=== PATIENT | male | born 1950 | race Caucasian/White ===

== ENCOUNTER 2020-11-30 07:14 | Day surgery (SDC) | payer MEDICARE ==
[2020-11-29 11:21] LABS: BASOPHILS % (AUTO) 0.4 % (0-1); EOSINOPHILS # (AUTO) 0.1 X10'3 (0-0.9); EOSINOPHILS % (AUTO) 1.4 % (0-6); HEMOGLOBIN 14.4 g/dl (14.0-17.9); LYMPHOCYTES # (AUTO) 1.9 X10'3 (1.1-4.8); LYMPHOCYTES % (AUTO) 32.7 % (21-51); MEAN CORPUSCULAR HEMOGLOBIN 28.1 PG (27.0-31.0); MEAN CORPUSCULAR HGB CONC 32.8 g/dL (33.0-36.5); MEAN CORPUSCULAR VOLUME 85.5 FL (78-98); MEAN PLATELET VOLUME 6.7 FL (7.4-10.4); MONOCYTES # (AUTO) 0.8 X10'3 (0-0.9); MONOCYTES % (AUTO) 13.9 % (2-12); NEUTROPHILS # (AUTO) 3.1 X10'3 (1.8-7.7); NEUTROPHILS % (AUTO) 51.6 % (42-75); PLATELET COUNT 263 X10'3 (140-440); RED BLOOD COUNT 5.15 X10'6 (4.70-6.10); RED CELL DISTRIBUTION WIDTH 14.4 % (11.5-14.5); WHITE BLOOD COUNT 5.9 X10'3 (4.5-11.0)
[2020-11-29 11:31] LABS: ALBUMIN 3.8 G/DL (3.4-5.0); ANION GAP 9 (8-16); BLOOD UREA NITROGEN 19 MG/DL (7-18); BUN/CREATININE RATIO 15.8 (5.4-32.0); CALCIUM 8.7 MG/DL (8.5-10.1); CHLORIDE 106 MMOL/L (99-107); GLUCOSE 99 MG/DL (70-104); POTASSIUM 4.6 MMOL/L (3.5-5.1); SODIUM 143 MMOL/L (135-145); TOTAL CARBON DIOXIDE 27.9 MMOL/L (24-32); eGFR 60 ML/MIN
[2020-11-29 11:34] LABS: PARTIAL THROMBOPLASTIN TIME 28 SECONDS (22-32)
[2020-11-30] VITALS (15 sets, daily range): BP systolic 109–140; BP diastolic 50–76
[~2020-11-30] VITALS: Ht 175.3 cm; Wt 86.6 kg
[~2020-11-30 07:14] MED LIST: ATOR10TA87 PO; CLOP75TA34 PO; HYDR-4353 PO; OMEG1CAP13 PO
[2020-11-30] MEDS ORDERED: normal saline 1,000 ML IV SCH ×2 (07:50→11:45)
[2020-11-30] MEDS ORDERED: LIDOcaine/PRILOcaine 5gm cream TP ONE (07:50)
[2020-11-30] MEDS ORDERED: LORazepam 0.5 MG tablet PO PRN (07:50)
[2020-11-30] MEDS ORDERED: diphenhydrAMINE 25mg capsule PO PRN (07:50)
[2020-11-30] MEDS ORDERED: LISI2.5T14 PO (08:09)
[2020-11-30] MEDS ORDERED: ATOR40TA72 PO (08:09)
[2020-11-30] MEDS ORDERED: ASPI-1265 PO (08:10)
[2020-11-30] MEDS ORDERED: nitroGLYCERIN-Tridil 50MG/D5W 250 ML IV ONE (09:29)
[2020-11-30] MEDS ORDERED: verapamil 2.5 mg/ml inj IV ONE (09:29)
[2020-11-30] MEDS ORDERED: fentaNYL/PF 50MCG/1 ML 2ML syringe ONE (09:29)
[2020-11-30] MEDS ORDERED: iohexol 350MG/ML 100ml bottle IV ONE ×2 (09:29→10:22)
[2020-11-30] MEDS ORDERED: LIDOcaine 1% (10mg/ml)w/preservative injection 20ml MDV ONE (09:29)
[2020-11-30] MEDS ORDERED: heparin 1,000unit/ml 10ml vial 10 ML ONE (09:29)
[2020-11-30] MEDS ORDERED: midazolam 1 mg/ML 2ml injection ONE (09:29)
[2020-11-30] MEDS ORDERED: iohexol 350 MG/ML 50ML vial IV ONE (09:29)
[2020-11-30] MEDS ORDERED: heparin 25,000 UNIT/250ml bag 250 ML IV ONE (10:22)
[2020-11-30] MEDS ORDERED: clopidogrel 300mg tablet ONE (10:59)
[2020-11-30] MEDS ORDERED: MESSAGE TO NURSING IV ONE (12:15)
[2020-11-30] MEDS ORDERED: HYDROcodone/acetaminophen 10/325mg tab PO PRN (13:40)
[2020-11-30] MEDS ORDERED: ondansetron/PF 4mg/2ml inj ONE (14:17)
== END 2020-11-30 17:50 | disposition home or self-care (01) ==
LOC: SSTAY O 07:14
PROVIDERS: ATTEND Internal Medicine Cardiovascular Disease
DX: R94.39 Abnormal result of other cardiovascular function study (principal); I25.10 Atherosclerotic heart disease of native coronary artery without angina pectoris; E78.49 Other hyperlipidemia; M13.88 Other specified arthritis, other site; I10 Essential (primary) hypertension; F17.210 Nicotine dependence, cigarettes, uncomplicated; Z86.19 Personal history of other infectious and parasitic diseases; Z95.5 Presence of coronary angioplasty implant and graft; Z79.82 Long term (current) use of aspirin; Z79.01 Long term (current) use of anticoagulants; Z88.8 Allergy status to other drugs, medicaments and biological substances; Z88.5 Allergy status to narcotic agent; Z79.899 Other long term (current) drug therapy
CPT/HCPCS: 36415; 76937; 80048; 85025; 85347; 85610; 85730; 93005; 93458; 99152; 99153; C1725; C1751; C1769; C1874; C1894; C9600; J1644; J2001; J2250; J2405; J3010; J7030; Q0163; Q9967; A4620; A5120; A6258; J3490

== ENCOUNTER 2021-06-30 09:57 | Day surgery (SDC) | payer MEDICARE ==
[2021-06-29 12:27] LABS: BASOPHILS % (AUTO) 0.8 % (0-1); EOSINOPHILS % (AUTO) 0.8 % (0-6); HEMOGLOBIN 14.3 g/dl (14.0-17.9); LYMPHOCYTES # (AUTO) 1.7 X10'3 (1.1-4.8); MEAN CORPUSCULAR HEMOGLOBIN 27.4 PG (27.0-31.0); MEAN CORPUSCULAR HGB CONC 33.2 g/dL (33.0-36.5); MEAN CORPUSCULAR VOLUME 82.5 FL (78-98); MEAN PLATELET VOLUME 6.7 FL (7.4-10.4); MONOCYTES # (AUTO) 0.7 X10'3 (0-0.9); MONOCYTES % (AUTO) 12.3 % (2-12); NEUTROPHILS # (AUTO) 3.4 X10'3 (1.8-7.7); NEUTROPHILS % (AUTO) 57.1 % (42-75); PLATELET COUNT 280 X10'3 (140-440); RED BLOOD COUNT 5.21 X10'6 (4.70-6.10); RED CELL DISTRIBUTION WIDTH 14.4 % (11.5-14.5); WHITE BLOOD COUNT 5.9 X10'3 (4.5-11.0)
[2021-06-29 12:34] LABS: ALBUMIN 3.9 G/DL (3.4-5.0); ANION GAP 8 (8-16); BLOOD UREA NITROGEN 17 MG/DL (7-18); BUN/CREATININE RATIO 14.9 (5.4-32.0); CHLORIDE 102 MMOL/L (99-107); CREATININE 1.14 MG/DL (0.60-1.10); GLUCOSE 109 MG/DL (70-104); POTASSIUM 4.3 MMOL/L (3.5-5.1); SODIUM 138 MMOL/L (135-145); TOTAL CARBON DIOXIDE 28.2 MMOL/L (24-32); eGFR 64 ML/MIN
[2021-06-29 12:37] LABS: APTT 27 SECONDS (22-32)
[~2021-06-30] VITALS: Ht 177.8 cm; Wt 87.9 kg
[2021-06-30] VITALS (9 sets, daily range): BP systolic 132–162; BP diastolic 66–83
[~2021-06-30 09:57] MED LIST changes: +ASPI-1265 PO; -ATOR10TA87 PO; +ATOR40TA72 PO; -CLOP75TA34 PO; +LISI2.5T14 PO
[2021-06-30] MEDS ORDERED: diphenhydrAMINE 25mg capsule PO PRN (10:10)
[2021-06-30] MEDS ORDERED: normal saline 1,000 ML IV SCH (10:10)
[2021-06-30] MEDS ORDERED: LORazepam 0.5 MG tablet PO PRN (10:10)
[2021-06-30] MEDS ORDERED: CLOP75TA15 PO (10:18)
[2021-06-30] MEDS ORDERED: nitroGLYCERIN-Tridil 50MG/D5W 250 ML IV ONE (13:19)
[2021-06-30] MEDS ORDERED: verapamil 2.5 mg/ml inj IV ONE (13:19)
[2021-06-30] MEDS ORDERED: fentaNYL/PF 50MCG/1 ML 2ML syringe ONE (13:19)
[2021-06-30] MEDS ORDERED: iohexol 350MG/ML 100ml bottle IV ONE ×2 (13:20→15:05)
[2021-06-30] MEDS ORDERED: LIDOCAINE 1% w/preservative (10 MG/ML) inj. 10mL VIAL ONE (13:20)
[2021-06-30] MEDS ORDERED: midazolam 1 mg/ML 2ml injection ONE (13:20)
[2021-06-30] MEDS ORDERED: iohexol 350 MG/ML 50ML vial IV ONE (13:20)
[2021-06-30] MEDS ORDERED: heparin 1,000unit/ml 10ml vial 10 ML ONE ×2 (13:20→14:42)
[2021-06-30] MEDS ORDERED: heparin 25,000 UNIT/250ml bag 250 ML IV ONE (13:28)
[2021-06-30] MEDS ORDERED: heparin 1,000 UNITS/NS 500ml 500 ML ONE (15:13)
[2021-06-30] MEDS ORDERED: clopidogrel 300mg tablet ONE ×2 (15:30→15:37)
[2021-06-30] MEDS ORDERED: HYDROcodone/acetaminophen 10/325mg tab PO PRN (16:10)
[2021-06-30] MEDS ORDERED: HYDROcodone/acetaminophen 5mg/325mg tablet PO PRN (16:10)
--- NOTE | 2021-06-30 17:43 | NUR ---
Called Dr. Wagoner to clarify new prescription for Crestor as patient is already on Lipitor. He said to d/c lipitor and start new prescription for Crestor.
[2021-06-30] MEDS ORDERED: ACETYLCYSTEINE 200 MG/1 ML 4 ML ORAL SOLUTION PO SCH (20:00)
== END 2021-06-30 20:05 | disposition home or self-care (01) ==
LOC: SSTAY O 09:57
PROVIDERS: ATTEND Internal Medicine Cardiovascular Disease
DX: R94.39 Abnormal result of other cardiovascular function study (principal); I25.10 Atherosclerotic heart disease of native coronary artery without angina pectoris; I10 Essential (primary) hypertension; E78.5 Hyperlipidemia, unspecified; M13.88 Other specified arthritis, other site; Z79.01 Long term (current) use of anticoagulants; Z95.5 Presence of coronary angioplasty implant and graft; Z79.899 Other long term (current) drug therapy; Z79.82 Long term (current) use of aspirin; Z86.19 Personal history of other infectious and parasitic diseases
CPT/HCPCS: 36415; 76937; 80048; 85025; 85347; 85610; 85730; 92920; 93005; 93458; 99152; 99153; C1725; C1751; C1769; C1874; C1894; C9600; J1644; J2250; J3010; J3490; J7030; Q0163; Q9967; A4620; A5120; A6258

== ENCOUNTER 2024-08-11 00:19 | Emergency (ER) | payer MEDICARE ==
[~2024-08-11] VITALS: Ht 177.8 cm; Wt 86.4 kg
[~2024-08-11 00:19] MED LIST changes: +CLOP75TA15 PO; +OMEG-45 PO; -OMEG1CAP13 PO
--- NOTE | 2024-08-11 00:28 | ELECTROCARDIOGRAPH REPORT ---
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
--- NOTE | 2024-08-11 00:31 | Physician Documentation ---
History of Present Illness ~ Chief Complaint: Chest Pain Stated Complaint: CHEST PAIN Time Seen by MD: 00:30 HPI 73-year-old male, history of multiple stents, otherwise generally healthy, presenting with chest pain. He tells me that his symptoms started at around 2:00 p.m., about 10 hours ago. He reports having pain in his chest, which is around his central chest, feels tight, and also radiates around to the left side in his back. It is worse when he takes a deep breath, worse with certain positions. It is much worse when he lays flat. He tried multiple treatments at home without relief. He tried ibuprofen, [place], 2 nitroglycerin, and did take 325 aspirin. He finally came to the hospital because he was having a hard time sleeping. 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 He does lift weights. He does report feeling hot and sweaty today. No abdominal pain, nausea, vomiting. Later he does tell me that he had a throat infection about a week or so ago with white spots in his throat. This has resolved. Medication Reconciliation Allergies: Coded Allergies: No Known Allergies (Unverified , 08/11/24) Scheduled Aspirin (Aspirin), 1 TAB PO DAILY, (Reported) Atorvastatin Calcium (Atorvastatin Calcium), 1 TAB PO DAILY, (Reported) Clopidogrel Bisulfate (Plavix), 75 MG PO DAILY, (Reported) Colchicine (Colchicine), 1 CAP PO Q12H Hydrocodone Bit/Acetaminophen ([place] 10-325 Tablet), 1 TAB PO Q6H, (Reported) [place]-3 Fatty Acids/Fish Oil (Fish Oil 1,000 mg Softgel), 1 CAP PO DAILY, (Reported) Scheduled PRN Lisinopril (Lisinopril), 1 TAB PO PRN PRN for high blood pressure, (Reported) Past Medical History Past Medical History: Angina, Coronary Artery Disease Review of Systems Constitutional: Denies: fever Respiratory: Reports: pain with breathing Cardiovascular: Reports: chest pain Physical Exam Vital Signs: Heart Rate: 97, Respiratory Rate: 13, BP: 155/84, Pulse Oximetry: 97, Weight: 86.360 Physical Exam General: This is a pleasant and overall healthy-appearing older man, at bedside HEENT: Atraumatic, oropharynx is moist Heart: Mild tachycardic, appears regular, no audible murmur normal-appearing peripheral perfusion. No audible murmur or friction rub Lungs: Clear breath sounds bilateral, normal work of breathing and speaks in full sentences, normal oxygen saturation on room air. He does have some splinting with deep inspiration Abdomen: Soft, nondistended, nontender all quadrants including in the epigastric region Extremities: Warm and well-perfused, no edema or posterior calf or thigh ten derness Neuro: Alert and oriented, no focal deficits Psychiatric: Calm and cooperative with exam Progress Results/Orders Results/Orders Orders - FEDE NICHOLS MD Chest,Single View (08/11/24 00:24) Monitor (08/11/24 00:24) Saline Lock (08/11/24 00:24) Oxygen (08/11/24 00:24) Hs Troponin I W Calculations (08/11/24 03:24) Cta Chest Pe (08/11/24 01:45) C-Reactive Protein (08/11/24 03:58) Completed Orders - FEDE NICHOLS MD Chest,Single View (08/11/24 00:24) Cbc/Diff (08/11/24 00:24) PBNP (08/11/24 00:24) Electrocardiogram (08/11/24 00:24) CMP (08/11/24 00:24) Hs Troponin I W Calculations (08/11/24 00:24) Hs Troponin I W Calculations (08/11/24 02:24) Ketorolac Trometh 15mg/Ml Vial (Toradol (08/11/24 00:45) Stat Ekg (08/11/24 ) Man Diff (08/11/24 00:50) Cta Chest Pe (08/11/24 01:45) Iohexol 350mg/Ml 100ml (Omnipaque 350mg/ (08/11/24 01:43) Colchicine Tablet (Colchicine Tablet) (08/11/24 04:05) Medications Received in ER Medications (Trade) Dose Ordered Sig/[place] Route PRN Reason Start Time Stop Time Status Last Admin Dose Admin (Toradol injection) 15 mg ONCE ONCE IV 08/11/24 00:45 08/11/24 00:46 DC 08/11/24 01:13 15 MG Vital Signs 08/11/24 08/11/24 08/11/24/27/25 00:26 01:13 02:06 02:24 Pulse 97 81 Resp 13 15 15 17 B/P (MAP) 155/84 140/62 (88) Pulse Ox 97 96 O2 Flow Rate 0 08/11/24 02:25 Resp 16 Laboratory Tests Test 08/11/24 00:50 08/11/24 03:28 White Blood Count 9.2 Red Blood Count 4.80 Hemoglobin 13.8 L Hematocrit 40.5 L Mean Corpuscular Volume 84.3 Mean Corpuscular Hemoglobin 28.7 Mean Corpuscular Hemoglobin Concent 34.0 Red Cell Distribution Width 14.5 Platelet Count 267 Mean Platelet Volume 6.7 L Neutrophils (%) (Auto) 68.3 Lymphocytes (%) (Auto) 14.4 L Monocytes (%) (Auto) 15.8 H Eosinophils (%) (Auto) 1.3 Basophils (%) (Auto) 0.2 Neutrophils # (Auto) 6.3 Lymphocytes # (Auto) 1.3 Monocytes # (Auto) 1.5 H Eosinophils # (Auto) 0.1 Basophils # (Auto) 0.0 CBC Comment Differential Total Cells Counted 100 Neutrophils % (Manual) 72.0 Lymphocytes % (Manual) 13.0 L Monocytes % (Manual) 15.0 H Platelet Estimate Normal Red Blood Cell Morphology Normal Basophilic Stippling Sodium Level 139 Potassium Level 4.0 Chloride Level 103 Carbon Dioxide Level 29.1 Anion Gap 7 L Blood Urea Nitrogen 28 H Creatinine 1.44 H Estimated GFR/1.73 m2 48 BUN/Creatinine Ratio 19.4 Glucose Level 123 H Calcium Level 9.7 Total Bilirubin 0.5 Aspartate Amino Transf (AST/SGOT) 20 Alanine Aminotransferase (ALT/SGPT) 17 Alkaline Phosphatase 55 Troponin I High Sensitivity 13 11 Pro-B-Type Natriuretic Peptide 147 H Total Protein 7.2 Albumin 3.8 Globulin 3.4 Albumin/Globulin Ratio 1.1 Chemistry Comments Troponin I High Sens Percent Delta 15 Troponin I Hi Sens Absolute Change -2 EKG/XRAY/CT/US/VASC/MRI EKG : Additional Comment I personally interpreted the EKG and this shows: Sinus tachycardic, rate 102, QTC 446, the patient has some variability to the EKG with a poor baseline, possible ST elevation in the inferior leads CT : Impression I personally reviewed the CT scan, and this shows no evidence of pulmonary embolus, no aortic dissection, but there is a pericardial effusion Heart Score: Heart Score Response (Comments) Value History Moderate Suspicious [address]-Deviation 2 Age >65 2 Risk Factors 1 or 2 risk factors 1 Troponin Normal limit 0 Total 6 Medical Decision Making Heart Score: 6 Differential Dx:Considerations: Include: angina, aortic dissection, chest wall pain, CHF, costochondritis, myocardial infarction, pericarditis, pleuritis, pneumothorax, pulmonary embolus Assessment 73-year-old male presenting with chest pain. His symptoms have been ongoing for about 10 or 11 hours by time of my evaluation. His EKG does show diffuse ST elevation, without reciprocal changes, concerning for possible ischemic changes or pericarditis. However, his clinical history appears more consistent with pericarditis. His troponin then returns normal, making STEMI or ACS unlikely. Labs were otherwise unremarkable. Chest x-ray unremarkable. Given the unclear cause of his symptoms, a CT scan of the chest was then obtained, which shows no PE, aortic dissection, but does show a pericardial effusion. This seems consistent with pericarditis. He has no findings of congestive heart failure or tamponade at this time. Given his overall well appearance, it seems reasonable for him to be discharged on ibuprofen and colchicine. 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 Return precautions were given if he does develop any worsening symptoms including shortness of breath, worsening chest pain, signs of congestive heart failure, or tamponade. Departure Time of Disposition: 04:01 Disposition: 01 HOME / SELF CARE / HOMELESS Impression: Primary Impression: Pericarditis Additional Impression: Pericardial effusion Condition: Improved Discharge Instructions: Pericardial Effusion, Pericarditis Referrals: NO PRIMARY CARE PROVIDER (PCP) Prescriptions Colchicine (Colchicine) 0.6 Mg Capsule 1 CAP PO Q12H for 90 Days, #60 CAP 0 Refills Prov: FEDE NICHOLS MD 08/11/24 Education Educated: Patient, Family Educated regarding: diagnosis, treatment, need for follow up Signature Scribe Signature: kathy Attestation: FEDE Parra MD August 11, 2024 00:31
[2024-08-11 00:54] LABS: BASOPHILS % (AUTO) 0.2 % (0-1); EOSINOPHILS # (AUTO) 0.1 X10'3 (0-0.9); EOSINOPHILS % (AUTO) 1.3 % (0-6); HEMATOCRIT 40.5 % (42.0-52.0); HEMOGLOBIN 13.8 g/dl (14.0-17.9); LYMPHOCYTES # (AUTO) 1.3 X10'3 (1.1-4.8); LYMPHOCYTES % (AUTO) 14.4 % (21-51); MEAN CORPUSCULAR HEMOGLOBIN 28.7 PG (27.0-31.0); MEAN CORPUSCULAR VOLUME 84.3 FL (78-98); MEAN PLATELET VOLUME 6.7 FL (7.4-10.4); MONOCYTES # (AUTO) 1.5 X10'3 (0-0.9); MONOCYTES % (AUTO) 15.8 % (2-12); NEUTROPHILS # (AUTO) 6.3 X10'3 (1.8-7.7); NEUTROPHILS % (AUTO) 68.3 % (42-75); PLATELET COUNT 267 X10'3 (140-440); RED CELL DISTRIBUTION WIDTH 14.5 % (11.5-14.5); WHITE BLOOD COUNT 9.2 X10'3 (4.5-11.0)
--- NOTE | 2024-08-11 00:56 | ELECTROCARDIOGRAPH REPORT ---
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
--- NOTE | 2024-08-11 01:06 | RADIOLOGY REPORT ---
CHEST RADIOGRAPH Indication: CP Technique: Single frontal view of the chest was obtained COMPARISON: None FINDINGS: Lines and Tubes: None Lungs: Clear. Pleura: No effusion. No pneumothorax. Cardiomediastinal contours: Unremarkable IMPRESSION: No abnormality demonstrated.
[2024-08-11 01:10] LABS: ALANINE AMINOTRANSFERASE 17 U/L (12-78); ALBUMIN 3.8 G/DL (3.4-5.0); ALBUMIN/GLOBULIN RATIO 1.1 (1.1-1.5); ALKALINE PHOSPHATASE 55 IU/L (46-116); ANION GAP 7 (8-16); ASPARTATE AMINO TRANSFERASE 20 U/L (10-37); BILIRUBIN,TOTAL 0.5 MG/DL (0.1-1.0); BLOOD UREA NITROGEN 28 MG/DL (7-18); BUN/CREATININE RATIO 19.4 (10.0-20.0); CALCIUM 9.7 MG/DL (8.5-10.1); CHLORIDE 103 MMOL/L (99-107); CREATININE 1.44 MG/DL (0.60-1.10); GLUCOSE 123 MG/DL (70-104); SODIUM 139 MMOL/L (135-145); TOTAL CARBON DIOXIDE 29.1 MMOL/L (24-32); TOTAL CELLS COUNTED 100; TOTAL PROTEIN 7.2 G/DL (6.4-8.2); eCRCL 49 ML/MIN; eGFR 48 ML/MIN
[2024-08-11 01:11] LABS: PLATELET ESTIMATE NORMAL
[2024-08-11] MEDS: ketorolac trometh 15mg/ml vial 15 MG/ML ML IV ONE (01:13)
[2024-08-11 01:17] LABS: PRO BRAIN NATRIURETIC PEPTIDE 147 PG/ML (0-125)
[2024-08-11] MEDS ORDERED: iohexol 350MG/ML 100ml bottle IV ONE (01:43)
[2024-08-11 02:24] VITALS: PULSE 81
--- NOTE | 2024-08-11 03:40 | RADIOLOGY REPORT ---
Clinical History Pleuritic chest pain, radiates through to the back Comparison None Technique: contrast-enhanced CT volume data acquisition of the chest performed for CT angiography and presented in axial, coronal and sagittal planes including MIP series. All CT scans at this medical facility are performed using dose modulation techniques as appropriate t o a performed exam including the following: Automated exposure control was utilized; adjustment of th e mA and/or kV according to patient size; and use of iterative reconstruction technique. All CT studies are reported to the Dose Index Registry of the [employer]. Contrast: JENNA 350 100ML Radiation Dose: CTDI (mGy): 19.64; DLP (mGy-cm): 775.61 PETE RAH, [id number] FINDINGS: No precontrast imaging was performed. There is no evidence of pulmonary embolism, aortic aneurysm or aortic dissection on this study. Great vessels off the aortic arch are unremarkable on this study. Heart size is normal. There is a moderate volume of pericardial effusion measuring up to 19 mm thick anteriorly, source und etermined. There is no pneumonia or pulmonary vascular congestion, no pneumothorax or pneumomediastinum, no pleu ral effusion. Airways are patent, no mediastinal mass or pathologic adenopathy. Osseous structures do not suggest acute pathology. T3 vertebral body has moderate chronic-appearing wedge-shaped deformity with no spinal canal compromi se. Chest wall and limited evaluation of the lower neck reveal no other significant abnormality. Limited evaluation of upper abdomen is unremarkable. IMPRESSION: 1. No evidence of pulmonary embolism, aortic aneurysm or aortic dissection on this study. 2. Moderate volume of pericardial effusion up to 19 mm thick anteriorly, source undetermined. Infec tious and inflammatory etiologies could be considered. There is no evidence of contrast extravasatio n/active hemorrhage identified on this examination. Heart size is normal. This report was electronically signed by Pedro Meraz MD on 08/11/2024 3:37:42 AM. The above findings were reported to Dr. Mora. The call was initiated at 08/11/2024 3:37:54 AM.
[2024-08-11] MEDS ORDERED: COLC0.6C3 PO (04:03)
[2024-08-11] MEDS ORDERED: colchicine 0.6mg tablet PO ONE (04:05)
[2024-08-11 04:54] VITALS: BP 166/82; RESP 16; O2SAT 96
== END 2024-08-11 04:56 | disposition home or self-care (01) ==
LOC: ER 00:20
DX: I31.39 Other pericardial effusion (noninflammatory) (principal); I25.10 Atherosclerotic heart disease of native coronary artery without angina pectoris; Z79.82 Long term (current) use of aspirin
CPT/HCPCS: 36415; 71045; 71275; 80053; 83880; 84484; 85025; 93005; 96374; 99285; J1885; Q9967; 85007

== ENCOUNTER 2024-08-18 16:36 | Inpatient (IN) | payer MEDICARE ==
[~2024-08-18] VITALS: Ht 175.3 cm; Wt 66.5 kg
[~2024-08-18 16:36] MED LIST changes: +COLC0.6C3 PO
[2024-08-18 17:00] LABS: BASOPHILS # (AUTO) 0.1 X10'3 (0-0.2); BASOPHILS % (AUTO) 0.8 % (0-1); EOSINOPHILS # (AUTO) 0.1 X10'3 (0-0.9); EOSINOPHILS % (AUTO) 1.6 % (0-6); HEMATOCRIT 35.6 % (42.0-52.0); HEMOGLOBIN 11.8 g/dl (14.0-17.9); LYMPHOCYTES # (AUTO) 1.7 X10'3 (1.1-4.8); LYMPHOCYTES % (AUTO) 21.1 % (21-51); MEAN CORPUSCULAR HEMOGLOBIN 28.4 PG (27.0-31.0); MEAN CORPUSCULAR HGB CONC 33.3 g/dL (33.0-36.5); MEAN CORPUSCULAR VOLUME 85.5 FL (78-98); MEAN PLATELET VOLUME 6.7 FL (7.4-10.4); MONOCYTES # (AUTO) 1.1 X10'3 (0-0.9); MONOCYTES % (AUTO) 14.1 % (2-12); NEUTROPHILS % (AUTO) 62.4 % (42-75); PLATELET COUNT 389 X10'3 (140-440); RED BLOOD COUNT 4.16 X10'6 (4.70-6.10); RED CELL DISTRIBUTION WIDTH 14.2 % (11.5-14.5)
--- NOTE | 2024-08-18 17:03 | ELECTROCARDIOGRAPH REPORT ---
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 Marco Lara Measurements Intervals [place] Rate: 91 P: 88 [place]: 135 QRS: 36 QRSD: 89 T: 125 QT: 367 QTc: 452 Interpretive Statements Sinus rhythm Abnormal R-wave progression, early transition Inferior infarct, acute (RCA) Lateral leads are also involved Probable RV involvement, suggest recording right precordial leads Electronically Signed On 08-20-2024 6:35:[address] Marco Lara Please click the below link to view image of tracing.
[2024-08-18 17:22] LABS: APTT 28 SECONDS (22-32); PROTHROMBIN TIME 10.7 SECONDS (9.0-12.0)
[2024-08-18 17:33] LABS: ALBUMIN 3.2 G/DL (3.4-5.0); ANION GAP 8 (8-16); BLOOD UREA NITROGEN 22 MG/DL (7-18); BUN/CREATININE RATIO 14.2 (10.0-20.0); CALCIUM 8.8 MG/DL (8.5-10.1); CHLORIDE 104 MMOL/L (99-107); CREATININE 1.55 MG/DL (0.60-1.10); GLUCOSE 106 MG/DL (70-104); POTASSIUM 4.6 MMOL/L (3.5-5.1); PRO BRAIN NATRIURETIC PEPTIDE 118 PG/ML (0-125); SODIUM 140 MMOL/L (135-145); TOTAL CARBON DIOXIDE 28.2 MMOL/L (24-32); eCRCL 41 ML/MIN; eGFR 44 ML/MIN
--- NOTE | 2024-08-18 17:43 | Physician Documentation ---
History of Present Illness ~ Chief Complaint: Chest Pain Stated Complaint: "I HAVE FLUID AROUND MY HEART" Time Seen by MD: 17:01 HPI Patient was sent to the hospital by Dr. Camejo intermittently. He was here with a ago with chest pain was diagnosed with pericarditis was placed on colchicine. He did not tolerate the colchicine he has been taking ibuprofen. He had an echo done today which was concerning for tamponade pathology. He has some shortness for breath with exertion he is not lightheaded or dizzy no further chest pain. Medication Reconciliation Allergies: Coded Allergies: No Known Allergies (Unverified , 08/11/24) Scheduled Aspirin (Aspirin), 1 TAB PO DAILY, (Reported) Atorvastatin Calcium (Atorvastatin Calcium), 1 TAB PO DAILY, (Reported) Clopidogrel Bisulfate (Plavix), 75 MG PO DAILY, (Reported) Colchicine (Colchicine), 1 CAP PO Q12H Hydrocodone Bit/Acetaminophen ([place] 10-325 Tablet), 1 TAB PO Q6H, (Reported) [place]-3 Fatty Acids/Fish Oil (Fish Oil 1,000 mg Softgel), 1 CAP PO DAILY, (Reported) Scheduled PRN Lisinopril (Lisinopril), 1 TAB PO PRN PRN for high blood pressure, (Reported) Past Medical History Past Medical History: Angina, Coronary Artery Disease Physical Exam Vital Signs: Temperature: 97.9, Heart Rate: 94, Respiratory Rate: 12, BP: 128/71, Pulse Oximetry: 96, Weight: 66.700 Physical Exam General: Awake and Alert, no acute distress. HEENT: Conjunctiva pink, Sclera clear, Mucus Membranes moist. Neck: Supple without masses and tenderness. No JVD Resp: Unlabored. Lungs clear to auscultation bilaterally. Heart: Regular Rate and rhythm, normal S1 and S2 without murmur, rub or gallop. Abdomen: Soft and non tender no organomegaly Extremities: No cyanosis,clubbing or edema. Skin: Warm and Dry. Neuro: GCS 15; no focal deficits Progress Results/Orders Results/Orders Orders - TAMIKO BAZAN MD Chest,Single View (08/18/24 16:40) Monitor (08/18/24 16:40) Saline Lock (08/18/24 16:40) Oxygen (08/18/24 16:40) Hs Troponin I W Calculations (08/18/24 18:40) Hs Troponin I W Calculations (08/18/24 19:40) Echocardiogram (08/18/24 17:04) Completed Orders - TAMIKO BAZAN MD Chest,Single View (08/18/24 16:40) Cbc/Diff (08/18/24 16:40) BMP (08/18/24 16:40) PBNP (08/18/24 16:40) Electrocardiogram (08/18/24 16:40) Hs Troponin I W Calculations (08/18/24 16:40) PTT (08/18/24 17:02) Pt Inr (08/18/24 17:02) Vital Signs 08/18/24 08/18/24 16:44 17:18 Temp 97.9 Pulse 91 94 Resp 15 12 B/P (MAP) 144/77 128/71 (90) Pulse Ox 98 96 Laboratory Tests Test 08/18/24 16:44 White Blood Count 8.0 Red Blood Count 4.16 L Hemoglobin 11.8 L Hematocrit 35.6 L Mean Corpuscular Volume 85.5 Mean Corpuscular Hemoglobin 28.4 Mean Corpuscular Hemoglobin Concent 33.3 Red Cell Distribution Width 14.2 Platelet Count 389 Mean Platelet Volume 6.7 L Neutrophils (%) (Auto) 62.4 Lymphocytes (%) (Auto) 21.1 Monocytes (%) (Auto) 14.1 H Eosinophils (%) (Auto) 1.6 Basophils (%) (Auto) 0.8 Neutrophils # (Auto) 5.0 Lymphocytes # (Auto) 1.7 Monocytes # (Auto) 1.1 H Eosinophils # (Auto) 0.1 Basophils # (Auto) 0.1 CBC Comment Prothrombin Time 10.7 INR International Normalized Ratio 1.0 Activated Partial Thromboplast Time 28 Coagulation Comments Sodium Level 140 Potassium Level 4.6 Chloride Level 104 Carbon Dioxide Level 28.2 Anion Gap 8 Blood Urea Nitrogen 22 H Creatinine 1.55 H Estimated GFR/1.73 m2 44 BUN/Creatinine Ratio 14.2 Glucose Level 106 H Calcium Level 8.8 Troponin I High Sensitivity 6 Pro-B-Type Natriuretic Peptide 118 Albumin 3.2 L Chemistry Comments Medical Decision Making Findings Sinus rhythm of 91 beats per minute axis is normal intervals are normal nonspecific ST wave abnormalities baseline artifact no ST elevation or depres henry. Patient was sent to the hospital by Dr. Poli bell the s office he had pericarditis last week and echo done today shows tamponade pathology. No JVD. I immediately discussed with Dr. Rothman who wants a stat echo so he can visualize the images but the patient is hemodynamically stable right now does not need an emergent pericardiocentesis. Plan is for admission with a Cardiology consult. Departure Disposition: ADMITTED INPATIENT Admitted to Inpatient Unit: to hospitalist Admission Level of Care: Med/Surg with Tele Impression: Primary Impression: Pericardial effusion Additional Impression: Tamponade Condition: Guarded Referrals: NO PRIMARY CARE PROVIDER (PCP) Education Educated: Patient, Family Educated regarding: diagnosis Signature Scribe Signature: no scribe Attestation: no scribe TAMIKO BAZAN MD Aug 18, 2024 17:43
--- NOTE | 2024-08-18 17:57 | RADIOLOGY REPORT ---
CHEST RADIOGRAPH Indication: CP Technique: Single frontal view of the chest was obtained COMPARISON: DI CHEST,SINGLE VIEW on DOS: 08/11/24 FINDINGS: Lines and Tubes: None Lungs: Clear Pleura: No effusion. No pneumothorax. Cardiomediastinal contours: Borderline cardiomegaly. Bones: Unremarkable IMPRESSION: 1. Cardiomegaly, borderline
--- NOTE | 2024-08-18 18:50 | CARDIOLOGY REPORT ---
APPROVED REPORT EXAM: Limited 2D and color flow Echocardiogram. 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 Overall systolic function is preserved. LVEF i s 60-65%. RIGHT VENTRICLE RV apperars normal size and function. Moderate mid-diastolic collapse is well demonstrated consistent with early tamponade physiology. ATRIA Left atrium is mildly dilated with mid systolic collapse consistent with early tamponade physiology. Right atrium is mildly dilated with mid systolic collapse consistent with early tamponade physiolog y. AORTIC VALVE Trileaflet AV appears mildly sclerotic without obvious stenosis. Insufficiency not evalauted due to f ocused exam. MITRAL VALVE Mild MV annular calcification without obvious stenosis. Respiratory variation present through the andrew ral valve consistent with early tamponade physiology. Regurgitation not evaluated due to focused exam . TRICUSPID VALVE TV appears grossly normal but not evaluated due to focused exam. PERICARDIUM Large circumferential pericardial effusion measuring 1.50 cm anteriorly and 1.96 cm posteriorly at th e AV groove in subcostal long axis. Positive echo for signs of early hemodynamic compromise. RA colla pse is present. RV diastolic collapse is present. Heart visualized swinging during respiration. MV re spiratory variation is present. Other Information Study Quality: Adequate Conclusion Smalll LV size with moderate concentric hypertrophy. Overall systolic function is preserved. LVEF i s 60-65%. RV apperars normal size and function. Moderate mid-diastolic collapse is well demonstrated consisten t with early tamponade physiology. Left atrium is mildly dilated with mid systolic collapse consistent with early tamponade physiology. Right atrium is mildly dilated with mid systolic collapse consistent with early tamponade physiology. Trileaflet AV appears mildly sclerotic without obvious stenosis. Insufficiency not evalauted due to focused exam. Mild MV annular calcification without obvious stenosis. Respiratory variation present through the andrew ral valve consistent with early tamponade physiology. Insufficiency not evaluated due to focused exam . TV appears grossly normal but not evaluated due to focused exam. Large circumferential pericardial effusion measuring 1.50 cm anteriorly and 1.96 cm posteriorly at th e AV groove in subcostal long axis. Positive echo for signs of hemodynamic compromise. RA collapse is present. RV diastolic collapse is present. Heart visualized swinging during respiration. MV respirat ory variation is present.
[2024-08-18] MEDS ORDERED: potassium Cl 20 mEq SR tablet PO PRN ×2 (21:45)
[2024-08-18] MEDS ORDERED: ondansetron/PF 4mg/2ml inj IV PRN (21:45)
[2024-08-18] MEDS ORDERED: HYDROcodone/acetaminophen 5mg/325mg tablet PO PRN (21:45)
[2024-08-18] MEDS ORDERED: potassium Cl 40MEQ/1/2NS 520ml 520 ML IV PRN (21:45)
[2024-08-18] MEDS ORDERED: morphine 2 MG/ML inj. syringe IV PRN (21:45)
[2024-08-18] MEDS ORDERED: magnesium sulf-water 4G/100mL 100 ML IV PRN (21:45)
[2024-08-18] MEDS ORDERED: magnesium Cl slow-release 64mg tablet PO PRN (21:45)
[2024-08-18] MEDS ORDERED: magnesium hydroxide 30ml (MOM) UD suspension PO PRN (21:45)
[2024-08-18] MEDS ORDERED: magnesium sulf-water 2g/50mL 50 ML IV PRN (21:45)
--- NOTE | 2024-08-18 21:53 | HISTORY AND PHYSICAL-Residence ---
History & Physical Providers to CC Resident Creating Document: JOANNA VARELA, RES CC: JENNIFER CALVIN MD ~ History of Present Illness Reason for Admit\Complaint: Transfer in view of pericardial tamponade on echo History of Present Illness A 73-year-old male with past medical history of CAD status post stent placement, HTN, HLD presented to the ED after referral from Dr. Wagoner's clinic. Reportedly, on 08/11/24 patient presented to the ER with chest pain, pressure- like in character with a severity of 9/10 that radiated to the back and left shoulder, increased with deep inspiration and decreased on bending forward. During further investigations while in the ED pulmonary embolism and aortic aneurysm were ruled out, patient was found to have pericarditis. Patient was discharged with NSAIDs and colchicine. Patient's chest pain improved in about two days. Patient reportedly states that prior to the episode of chest pain patient had sore throat, fever with temperature of maximum 99 F with chills two weeks ago. Patient's also had similar symptoms. Today, patient went for a follow up to Dr. [facility]ese [facility] had a repeat echo which showed pericardial tamponade and therefore sent to the ED for further management. Patient also endorses associated fatigue, shortness of breaths on exertion. Patient denies palpitations. Allergies: Coded Allergies: No Known Allergies (Unverified , 08/11/24) Home Medications Home Medications Active Reported Aspirin 81 Mg Tab.chew 1 Tab PO DAILY Atorvastatin Calcium 40 Mg Tablet 1 Tab PO DAILY Lisinopril 2.5 Mg Tablet 1 Tab PO PRN PRN [place] 10-325 Tablet (Acetaminophen/Hydrocodone Bitart) 1 Each Tablet 1 Tab PO Q6H Fish Oil 1,000 mg Softgel (Fish Oil) 1 Each Capsule 1 Cap PO DAILY Past Medical History Past Medical History CAD status post stent placement with the last one in 2021 Hyperlipidemia Hepatitis-C Erectile dysfunction Tricuspid valve insufficiency HTN Nicotine dependence Past Surgical History Surgical History Comment Stent placements in 1018, two the and 2021 Past Social History Social History Comment Dr. Alvarado for primary care Dr. Wagoner for cardiology Smoked half pack of cigarettes for the last 15 years, claims has quit smoking nine years ago but occasionally consumes cigars Occasional alcohol consumption Does not consume marijuana or illicit drugs Lives at home with his ROS ROS All other systems reviewed in full and negative except for the pertinent positives mentioned in the HPI Exam Vitals: Vital Signs Date Time Temp Pulse Resp B/P (MAP) Pulse Ox O2 Delivery O2 Flow Rate FiO2 08/18/24 20:17 99 17 128/63 (84) 96 08/18/24 16:44 97.9 General: General: Alert, awake, oriented, not in acute distress HEENT: PERRLA, no icterus, pallor, lymphadenopathy, carotid bruit Respiratory system: Bilateral vesicular breath sounds heard, no adventitious breath sounds CVS: S1-S2 heard, no murmurs/rubs/gallop GI: Soft, nontender, no organomegaly, no guarding/rigidity, bowel sounds present Neuro: No focal neurological deficits present Extremities: No edema cyanosis clubbing/deformities Skin: Warm and dry Diagnostic Data Last Recorded Lab Results: 08/18/24 1644 08/18/24 1644 Diagnostic Data: Laboratory Tests Test 08/18/24 16:44 Prothrombin Time 10.7 SECONDS (9.0-12.0) INR International Normalized Ratio 1.0 INR Activated Partial Thromboplast Time 28 SECONDS (22-32) Coagulation Comments Advance Care Planning Advanced Care plannin - 30 Minutes (I spent 20 minutes discussing various resuscitative measures and the patient decided to be full code) Additional Plan Assessment: A 73-year-old male with past medical history of CAD status post stent placement, HLD, HTN presented to the ED as a transfer from Dr. Wagoner's clinic in view of cardiac tamponade on echo. Patient is admitted for the evaluation and management of cardiac tamponade. Plan: Pericardial tamponade History of pericarditis, probably viral Echo: . Moderate mid-diastolic collapse is well demonstrated consistent with early tamponade physiology. Left atrium is mildly dilated with mid systolic collapse consistent with early tamponade physiology. Right atrium is mildly dilated with mid systolic collapse consistent with early tamponade physiology. EKG: Showing diffuse ST-T elevations in multiple leads Dr. Rothman consulted, pericardiocentesis tomorrow in a.m. Continue to monitor vitals, consider transferring to ICU and immediate pericardiocentesis if the patient becomes hemodynamically unstable Follow up with EBV, parvo, Coxsackie virus panels Prerenal KIARA probably secondary to renal tubular stasis Elevated BUN and creatinine Continue IV fluids at 75 cc/hour Continue to monitor BMP CAD status post stent placements Continue aspirin HTN Continue lisinopril HLD LDL: 106, LDL goal less than 70 Continue atorvastatin History of hep C No active intervention in the moment Code status: Full code Diet: NPO DVT prophylaxis: SCD Disposition: Admit to PCU, probable pericardiocentesis in a.m. Joanna Varela MD Internal Medicine, PGY 1 I discussed the patient with the resident and agree with the assessment and plan as above. Jennifer Calvin MD Critical Care Date of Service: Aug 18, 2024 Billing Provider: JENNIFER CALVIN MD, SIVA, RES Aug 18, 2024 21:53 JENNIFER CALVIN MD Aug 19, 2024 03:42
[2024-08-18 22:00] VITALS: BP 134/78; PULSE 100; RESP 25; TEMP 98.6; O2SAT 98
[2024-08-18] MEDS: normal saline 1000ml 1,000 ML IV SCH (22:00)
[2024-08-18 22:06] LABS: HEMOGLOBIN A1C 5.9 % (4.5-6.2)
[2024-08-18] MEDS ORDERED: BACL10TA2 PO (22:15)
[2024-08-18] MEDS ORDERED: LISI5TAB22 PO (22:16)
[2024-08-18 22:58] VITALS: RESP 25; O2SAT 98
[2024-08-19] VITALS (15 sets, daily range): BP systolic 98–147; BP diastolic 51–90; PULSE 78–96; RESP 12–22; TEMP 97.5–98.7; O2SAT 94–98
[2024-08-19] MEDS: ibuprofen tablet 400 MG TABLET PO PRN (02:22)
[2024-08-19 03:26] LABS: BILIRUBIN,URINE NEGATIVE (Neg); CLARITY,URINE CLEAR (Clear); COLOR,URINE YELLOW (Yellow); GLUCOSE, URINE NEGATIVE (Neg); KETONES,URINE NEGATIVE (Neg); LEUKOCYTE ESTERASE ,URINE NEGATIVE (Neg); NITRITES, URINE NEGATIVE (Neg); OCCULT BLOOD,URINE NEGATIVE (Neg); PROTEIN,URINE NEGATIVE (Neg); UROBILINOGEN,URINE 0.2 E.U/dL (0.2-1.0)
[2024-08-19 03:27] LABS: UA COLLECTION TYPE NON-SPECIFIED
[2024-08-19 06:09] LABS: BASOPHILS % (AUTO) 0.3 % (0-1); EOSINOPHILS # (AUTO) 0.2 X10'3 (0-0.9); EOSINOPHILS % (AUTO) 2.1 % (0-6); HEMATOCRIT 31.2 % (42.0-52.0); HEMOGLOBIN 10.4 g/dl (14.0-17.9); LYMPHOCYTES # (AUTO) 1.6 X10'3 (1.1-4.8); MEAN CORPUSCULAR HEMOGLOBIN 28.3 PG (27.0-31.0); MEAN CORPUSCULAR HGB CONC 33.3 g/dL (33.0-36.5); MEAN CORPUSCULAR VOLUME 85.2 FL (78-98); MEAN PLATELET VOLUME 6.8 FL (7.4-10.4); MONOCYTES # (AUTO) 1.3 X10'3 (0-0.9); MONOCYTES % (AUTO) 17.3 % (2-12); NEUTROPHILS # (AUTO) 4.5 X10'3 (1.8-7.7); NEUTROPHILS % (AUTO) 59.3 % (42-75); PLATELET COUNT 372 X10'3 (140-440); RED BLOOD COUNT 3.66 X10'6 (4.70-6.10); RED CELL DISTRIBUTION WIDTH 14.3 % (11.5-14.5); WHITE BLOOD COUNT 7.6 X10'3 (4.5-11.0)
[2024-08-19 06:30] LABS: ALANINE AMINOTRANSFERASE 28 U/L (12-78); ALBUMIN 2.7 G/DL (3.4-5.0); ALBUMIN/GLOBULIN RATIO 0.7 (1.1-1.5); ALKALINE PHOSPHATASE 53 IU/L (46-116); ANION GAP 11 (8-16); ASPARTATE AMINO TRANSFERASE 7 U/L (10-37); BILIRUBIN,TOTAL 0.5 MG/DL (0.1-1.0); BLOOD UREA NITROGEN 18 MG/DL (7-18); CALCIUM 8.6 MG/DL (8.5-10.1); CHLORIDE 105 MMOL/L (99-107); GLUCOSE 114 MG/DL (70-104); MAGNESIUM 2.6 MG/DL (1.5-2.4); POTASSIUM 4.9 MMOL/L (3.5-5.1); SODIUM 143 MMOL/L (135-145); TOTAL CARBON DIOXIDE 27.1 MMOL/L (24-32); TOTAL PROTEIN 6.5 G/DL (6.4-8.2); eCRCL 43 ML/MIN; eGFR 46 ML/MIN
[2024-08-19 07:21] LABS: PLATELET ESTIMATE NORMAL; TOTAL CELLS COUNTED 100
[2024-08-19] MEDS: aspirin 81mg tab.chew PO SCH (08:00)
[2024-08-19] MEDS ORDERED: non-formulary drug (Atorvastatin Calcium 1 TAB) PO SCH (08:00)
[2024-08-19] MEDS: lisinopril 2.5mg tablet PO SCH (08:00)
[2024-08-19] MEDS: docusate sod 100mg capsule PO SCH (08:00)
--- NOTE | 2024-08-19 08:16 | PROGRESS NOTE ---
Daily Progress Note Providers to CC ~ Antibiotic Timeout Antibiotic Ordered?: No Subjective Patient complains of cough and deep breathing. States he has been coughing most of the night. Denies having any chest pain. Objective Vital Signs Date Time Temp Pulse Resp B/P (MAP) Pulse Ox O2 Delivery O2 Flow Rate FiO2 08/19/24 07:00 97.6 90 16 98/66 (77) 94 Room Air Result Diagram: 08/19/24 0514 08/19/24 0514 Awake cooperative in no acute distress HEENT normocephalic atraumatic extraocular movements are intact Neck supple, no JVD Chest: Decreased breath sounds, no wheezes crackles rhonchi Heart: Regular rate rhythm, distant heart sounds almost absent during inspiration Abdomen: Soft, nontender, no organomegaly Extremities no cyanosis clubbing or edema Neuro exam is nonfocal. Coagulation Studies Laboratory Tests Test 08/18/24 16:44 Prothrombin Time 10.7 SECONDS (9.0-12.0) INR International Normalized Ratio 1.0 INR Activated Partial Thromboplast Time 28 SECONDS (22-32) Coagulation Comments Other Results Medications reviewed Problem\Assessment\Plan 73 year-old male with past medical history of CAD status post stent placement, HTN, HLD presented to the ED after referral from Dr. Wagoner's clinic. Reportedly, on 08/11/24 patient presented to the ER with chest pain, pressure- like in character with a severity of 9/10 that radiated to the back and left shoulder, increased with deep inspiration and decreased on bending forward. During further investigations while in the ED pulmonary embolism and aortic aneurysm were ruled out, patient was found to have pericarditis. Patient was discharged with NSAIDs and colchicine. Patient was seen in the office of Dr. Wagoner where and echo was done and it showed a pericardial temponade and patient sent over to the ER. 1. Pericardial effusion with tamponade: Cardiology has been consulted.Treat per Dr. Rothman 2.HTN: Continue lisinopril 3. Hyperlipidemia: Continue atorvastatin 4. Code status: Full code 5. DVT prophylaxis: SCDs and early ambulation Date of Service: Aug 19, 2024 Billing Provider: YESI STONER MD Common Visit Codes: [id number] INP/OBS CARE(HIGH) YESI STONER MD Aug 19, 2024 08:16
[2024-08-19] MEDS: K and/or MAG REPLACEMENT MC SCH (08:36)
[2024-08-19] MEDS ORDERED: fentaNYL/PF 50MCG/1 ML 2ML syringe ONE ×2 (15:41→16:54)
[2024-08-19] MEDS ORDERED: LIDOcaine 1% 30ml preserv. free vial ONE (15:41)
[2024-08-19] MEDS ORDERED: midazolam 1 mg/ML 2ml injection ONE ×6 (15:41→17:13)
[2024-08-19] MEDS: MESSAGE TO PHARMACY IJ ONE (18:05)
[2024-08-19] MEDS: MESSAGE TO NURSING PO ONE ×4 (18:05)
[2024-08-19] MEDS: metoclopramide 10mg tablet PO ONE (18:05)
[2024-08-19] MEDS ORDERED: diphenhydrAMINE 25mg capsule PO PRN (18:05)
--- NOTE | 2024-08-19 18:20 | CONSULTATION REPORT ---
Consult Providers to CC ~ History of Present Illness Primary Medical Doctor: Dr. Silver Cage Reason for Admit\Complaint: Chest PAin with Fever and difussed ST Changes on EKG, Pericardial Effu History of Present Illness 73 yrs old male with a history of precordial and anterior pleuritic like chest pain associated to fever , cough and malaise. Per his he started having flu ;like symptoms about a week prior to his symptoms; He was seen in the Er over the weekend and discharge on Colchicine and Aspirin. He was readmitted because of worsening symptoms including chills, mild Hypotension was admitted for further work up. A 2-D ECHO showed a Large pericardial effusion with impending Tamponade; He was seen by cardiology and had an attempted pericardiocenthesis but not able to drain much due to the fact that the fluid was thick and loculated. He had a total of 300cc drained out in [employer] but after several attempts it was abandoned and a CVTS Consult requested for a formal pericardial window and drainage during this admission. Allergies: Coded Allergies: No Known Allergies (Unverified , 08/11/24) Home Medications Home Medications Active Reported Lisinopril 5 Mg Tablet 1 Tab PO DAILY Baclofen 10 Mg Tablet 1 Tab PO DAILY PRN Aspirin 81 Mg Tab.chew 1 Tab PO DAILY Atorvastatin Calcium 40 Mg Tablet 1 Tab PO DAILY [place] 10-325 Tablet (Acetaminophen/Hydrocodone Bitart) 1 Each Tablet 1 Tab PO Q6H Fish Oil 1,000 mg Softgel (Fish Oil) 1 Each Capsule 1 Cap PO DAILY Past Medical History Past Medical History History of Hepatitis C Chronic HTN Hyperlipidemia Past Surgical History Surgical History Comment Attempted Pericardiocenthesis done today. ROS ROS Significant for Pleuritic chest PAin anterior chest.Cough Exam Vitals: Vital Signs Date Time Temp Pulse Resp B/P (MAP) Pulse Ox O2 Delivery O2 Flow Rate FiO2 08/19/24 16:30 20 98 Room Air 08/19/24 15:00 98.0 92 112/86 (95) General: Looks Chronically ill and Pale but with out any acute distress at the time of the visit. his by the bedside, nursing Staff present. HEENT: No Rhinorrhea Neck: Supple and Symetrical; No Palpable masses, Carotid Pulses present. Chest: Bilateral Expansion; No Acute Distress. Lungs: Bilateral Air Entry with Some Rhonchi Cardiovascular: Heart: S1 S2 regular with present audible Heart Sounds. Abdomen: Soft, Non Tender, Sub- Xyphoid area puncture site intact.BS +. Non Tenderness. Extremities: Well perfused, No DVT. Capillary refill present. Central Nervous System: Alert and oriented x 3; Able to communicate with clear speech although still with some residual sedation from [employer], his present by the bed side.No Focal Deficits noted. Musculoskeletal: Adecuate muscular tone. Skin: No Jaundice, No Rash noted. Diagnostic Data Last Recorded Lab Results: 08/19/2451308/19/24513 Diagnostic Data: Laboratory Tests Test 08/18/24 16:44 Prothrombin Time 10.7 SECONDS (9.0-12.0) INR International Normalized Ratio 1.0 INR Activated Partial Thromboplast Time 28 SECONDS (22-32) Coagulation Comments Problems: (1) Status post pericardiocentesis Status: Acute Permanent Comment: with thick pericardial fluid and fibrin strands not able to drain properlly. Last Edited By: Vahe Kimball on Aug 19, 2024 18:31 (2) Hepatitis C Status: Chronic (3) Pericarditis Status: Acute Assessment & Plan: Awating final bacteriology and lab reports (4) Pericardial effusion Status: Acute Assessment & Plan: Will need a formal Subxyphoid Pericardial Window. Will schedule for 11 am tomorrow. NPO After midnight. I have discussed with the patient and his the risks and benefits of surgical intervention they understand and have agreed with the surgical plan. All their questions were answered to their satisfaction. (5) CAD (coronary artery disease) Status: Chronic (6) Hyperlipidemia Status: Chronic Additional Plan Scheduled for Subxyphoid Pericardial Window in am. Sepsis Screening Reassessment Date: Aug 19, 2024 Reassessment Time: 18:35 Vitals Signs Review 136/78 85 RR; 24 Cardiology Exam: normal peripheral pulses, no edema, no JVD Peripheral Pulses: 4+ carotid (R), 4+ carotid (L), 4+ radial (R), 4+ radial (L), 4+ femoral (R), 4+ femoral (L), 4+ dorsalis pedis (R), 4+ dorsalis pedis (L), 4+ posterior tib (R), 4+ posterior tib (L) Extremities: normal inspection, normal capillary refill Skin Color: Pale Visit Coding Cardiology Date of Service: Aug 19, 2024 Billing Provider: VAHE KIMBALL MD Cardiology Evaluation and Sofiya: [id number] SAME DATE (High) Cardiology Consultation Codes: [id number] CONSULT <60MIN Problem Qualifiers (1) Hepatitis C: Viral hepatitis chronicity: unspecified Hepatic coma status: without hepatic coma Qualified Codes: B19.20 - Unspecified viral hepatitis C without hepatic coma (2) Pericarditis: Pericarditis type: unspecified type (3) Hyperlipidemia: Hyperlipidemia type: moderate mixed hyperlipidemia not requiring statin therapy Qualified Codes: E78.2 - Mixed hyperlipidemia VAHE KIMBALL MD Aug 19, 2024 18:20
[2024-08-19] MEDS ORDERED: proCHLORperazine 10 MG/2 ml inj IV PRN (19:40)
[2024-08-19] MEDS ORDERED: OXAZEpam 15mg capsule PO PRN (19:40)
[2024-08-19] MEDS ORDERED: ondansetron/PF 4mg/2ml inj IV PRN (19:40)
[2024-08-19] MEDS ORDERED: baclofen 10mg tablet PO PRN (19:45)
[2024-08-19] MEDS: ceFAZolin 2gm/dext,iso 50mL 50 ML IV ONE (19:51)
--- NOTE | 2024-08-19 20:01 | RADIOLOGY REPORT ---
CHEST RADIOGRAPH Indication: PRE CARDIAC SURGERY Technique: Single frontal view of the chest was obtained Comparison: DI CHEST,SINGLE VIEW on DOS: 08/18/24, DI CHEST,SINGLE VIEW on DOS: 08/11/24 FINDINGS: Lines and Tubes: None Lungs: No focal consolidation. Pleura: No effusion. No pneumothorax. Cardiomediastinal contours: Unremarkable Bones: No acute osseous abnormality. IMPRESSION: No acute cardiopulmonary disease.
[2024-08-19] MEDS: acetaminophen 325mg tablet PO PRN (21:09)
[2024-08-20] VITALS (28 sets, daily range): BP systolic 99–189; BP diastolic 56–81; PULSE 82–115; RESP 9–21; TEMP 97.1–97.9; O2SAT 87–100
[2024-08-20 05:28] LABS: BASOPHILS % (AUTO) 0.5 % (0-1); EOSINOPHILS # (AUTO) 0.2 X10'3 (0-0.9); EOSINOPHILS % (AUTO) 1.8 % (0-6); HEMATOCRIT 34.5 % (42.0-52.0); HEMOGLOBIN 11.5 g/dl (14.0-17.9); LYMPHOCYTES # (AUTO) 1.3 X10'3 (1.1-4.8); LYMPHOCYTES % (AUTO) 15.9 % (21-51); MEAN CORPUSCULAR HEMOGLOBIN 28.4 PG (27.0-31.0); MEAN CORPUSCULAR HGB CONC 33.4 g/dL (33.0-36.5); MEAN CORPUSCULAR VOLUME 84.9 FL (78-98); MEAN PLATELET VOLUME 6.6 FL (7.4-10.4); MONOCYTES # (AUTO) 1.2 X10'3 (0-0.9); MONOCYTES % (AUTO) 14.3 % (2-12); NEUTROPHILS # (AUTO) 5.7 X10'3 (1.8-7.7); NEUTROPHILS % (AUTO) 67.5 % (42-75); PLATELET COUNT 433 X10'3 (140-440); RED BLOOD COUNT 4.07 X10'6 (4.70-6.10); RED CELL DISTRIBUTION WIDTH 13.9 % (11.5-14.5); WHITE BLOOD COUNT 8.4 X10'3 (4.5-11.0)
[2024-08-20 05:47] LABS: ALANINE AMINOTRANSFERASE 26 U/L (12-78); ALBUMIN 2.7 G/DL (3.4-5.0); ALBUMIN/GLOBULIN RATIO 0.7 (1.1-1.5); ALKALINE PHOSPHATASE 58 IU/L (46-116); ANION GAP 9 (8-16); ASPARTATE AMINO TRANSFERASE 20 U/L (10-37); BILIRUBIN,TOTAL 0.7 MG/DL (0.1-1.0); BLOOD UREA NITROGEN 15 MG/DL (7-18); BUN/CREATININE RATIO 11.6 (10.0-20.0); CALCIUM 8.6 MG/DL (8.5-10.1); CHLORIDE 106 MMOL/L (99-107); CREATININE 1.29 MG/DL (0.60-1.10); GLUCOSE 120 MG/DL (70-104); MAGNESIUM 2.4 MG/DL (1.5-2.4); POTASSIUM 4.3 MMOL/L (3.5-5.1); SODIUM 142 MMOL/L (135-145); TOTAL CARBON DIOXIDE 26.9 MMOL/L (24-32); TOTAL PROTEIN 6.7 G/DL (6.4-8.2); eCRCL 50 ML/MIN; eGFR 55 ML/MIN
--- NOTE | 2024-08-20 07:42 | CONSULTATION ---
DATE OF CONSULTATION: 08/19/2024 DICTATING PHYSICIAN: Bryson Rothman MD REASON FOR CONSULTATION: Pericardial effusion, possible pericardial tamponade. HISTORY OF PRESENT ILLNESS: The patient is a 73-year-old sent over from Dr. Wagoner's office for possible pericardial tamponade. No previous history of a pericardial effusion, although the patient recently was diagnosed with pericarditis. ALLERGIES: No known drug allergies. MEDICATIONS: Reported medications: Aspirin 81 mg once daily, atorvastatin 40 mg daily, lisinopril 25 mg daily. No other cardiac meds. PAST MEDICAL HISTORY: Coronary artery disease status post stent placement in 2021, hyperlipidemia, erectile dysfunction, hepatitis C. REVIEW OF SYSTEMS: As in the H and P. PHYSICAL EXAMINATION: VITAL SIGNS: The patient is afebrile. Blood pressure is 128/63 with a pulse of 99 beats per minute. HEENT: Unremarkable. LUNGS: Clear to auscultation. HEART: S1, S2. ABDOMEN: Benign. EXTREMITIES: No edema. NEUROLOGIC: Grossly nonfocal. LABORATORY DATA: Of note is that the patient has a creatinine of 1.55. Other labs are unremarkable. ASSESSMENT AND PLAN: Pericardial effusion with possible tamponade. I reviewed the patient's echocardiogram. He does have a large pericardial effusion. Mild right atrium and right atrial collapse. No significant tamponade. However, because of the patient's large effusion, he will require pericardiocentesis. The nature of the procedure, risks, benefits, alternatives, and complications were discussed with the patient. He voices understanding and wishes to proceed. Bryson Rothman MD TID: [id number] RECEIPT: [id number] FERNANDO/KORY
--- NOTE | 2024-08-20 08:06 | ELECTROCARDIOGRAPH REPORT ---
[facility] Test Date: 2024-08-20 Test Time: 08:05:41 Pat Name: RAH FREEMAN Department: [facility] 3S Patient ID: [id number] Room: [place] [id number] Gender: M Arts Manager: VIVEK : 1950 Requested By: RIYA MORENO Order Number: [id number] Reading MD: Dr. Bryson Rothman Measurements Intervals [place] Rate: 92 P: 68 VA: 139 QRS: 44 QRSD: 89 T: 59 QT: 369 QTc: 457 Interpretive Statements Sinus rhythm Borderline low voltage, extremity leads Abnormal R-wave progression, early transition Minimal ST elevation, inferior leads Electronically Signed On 08-23-2024 19:04:[address] Bryson Rothman Please click the below link to view image of tracing.
[2024-08-20] MEDS: OMEGA-3/DHA/EPA/FISH OIL 1 EACH CAPSULE.DR PO SCH (09:07)
[2024-08-20] MEDS: atorvastatin 20mg tablet PO SCH (09:09)
[2024-08-20] MEDS: lisinopril 5mg tablet PO SCH (09:09)
--- NOTE | 2024-08-20 09:42 | PROGRESS NOTE ---
Progress Note CV Providers to CC ~ Antibiotics Ordered?: No Objective Vitals Vital Signs Date Time Temp Pulse Resp B/P (MAP) Pulse Ox O2 Delivery O2 Flow Rate FiO2 08/20/24 09:09 93 08/20/24 06:00 97.1 15 122/68 (86) 90 Room Air Lab Results: 08/20/24 0501 08/20/24 0501 Coagulation Studies Laboratory Tests Test 08/18/24 16:44 Prothrombin Time 10.7 SECONDS (9.0-12.0) INR International Normalized Ratio 1.0 INR Activated Partial Thromboplast Time 28 SECONDS (22-32) Coagulation Comments Cardiac Rhythm: Sinus Rhythm, Sinus Tachycardia Problem\Assessment\Plan Additional Plan No new complaints. Questions answered. He is NPO for subxiphoid pericardial window today. Sepsis Screening Reassessment Date: Aug 20, 2024 Reassessment Time: 18:35 Skin Color: Pale Supervising MD Co-signing Provider: CALEB Tracey Aug 20, 2024 09:42
[2024-08-20] MEDS: MESSAGE TO NURSING PO ONE (10:00)
[2024-08-20 11:21] LABS: EBV AB VCA, IGM <36.0 U/mL (0.0-35.9); EBV NUCLEAR ANTIGEN AB, IGG 85.6 U/mL (0.0-17.9)
[2024-08-20] MEDS ORDERED: BUPIVAcaine 0.25% w/Epi /PF 30ml vial ONE (12:16)
[2024-08-20] MEDS ORDERED: ceFAZolin 1000mg inj ONE ×3 (12:17→13:01)
[2024-08-20] MEDS ORDERED: morphine 2 MG/ML inj. syringe IV PRN ×3 (12:25→14:10)
[2024-08-20] MEDS ORDERED: morphine 4 MG/ML inj SYRINge IV PRN ×2 (12:25→13:55)
[2024-08-20] MEDS ORDERED: labetalol 20mg/4ml (5mg/ml) syringe IV PRN (12:25)
[2024-08-20] MEDS ORDERED: fentaNYL/PF 50MCG/1 ML 2ML syringe IV PRN (12:25)
[2024-08-20] MEDS ORDERED: hydrALAZINE 20mg/ml inj. IV PRN (12:25)
[2024-08-20] MEDS ORDERED: ondansetron/PF 4mg/2ml inj IV PRN ×2 (12:25→13:55)
[2024-08-20] MEDS: ceFAZolin 1000mg inj IR ONE (12:30)
[2024-08-20] MEDS ORDERED: sevoflurane 250ml liquid IH ONE (12:30)
[2024-08-20] MEDS ORDERED: propofol inj 20 ML IV ONE (12:31)
[2024-08-20] MEDS ORDERED: rocuronium 10mg/ml inj IV ONE (12:31)
[2024-08-20] MEDS ORDERED: dexamethasone sod phosphate 4mg/ml inj. ONE (12:31)
[2024-08-20] MEDS ORDERED: LIDOcaine 1%/PF 5ML 10 MG/ML VIAL ONE ×3 (12:31→12:33)
[2024-08-20] MEDS ORDERED: ondansetron/PF 4mg/2ml inj ONE (12:33)
[2024-08-20] MEDS ORDERED: fentaNYL/PF 50MCG/1 ML 2ML syringe ONE (12:45)
[2024-08-20] MEDS ORDERED: BUPIVAcaine 2.5mg/ml inj 50ml vial (contains preservative) ONE (12:51)
[2024-08-20] MEDS ORDERED: acetaminophen 1,000mg/100ml IV 100 ML IV ONE (13:06)
[2024-08-20] MEDS ORDERED: labetalol 20mg/4ml (5mg/ml) syringe IV ONE (13:22)
[2024-08-20] MEDS ORDERED: neostigmine methylsulfate 1 MG/ML 10ml vial ONE (13:34)
[2024-08-20] MEDS ORDERED: glycopyrrolate 0.2mg/ml inj ONE (13:34)
[2024-08-20] MEDS ORDERED: HYDROcodone/acetaminophen 10/325mg tab PO PRN (13:55)
[2024-08-20] MEDS ORDERED: magnesium hydroxide 30ml (MOM) UD suspension PO PRN (13:55)
[2024-08-20] MEDS ORDERED: metoclopramide 5 mg/ml inj IV PRN (13:55)
[2024-08-20] MEDS: fentaNYL/PF 50MCG/1 ML 2ML syringe IV PRN (14:16)
[2024-08-20] MEDS: morphine 4 MG/ML inj SYRINge IV PRN (14:33)
[2024-08-20] MEDS: ringers solution, lacted 1,000 ML IV SCH (14:59)
[2024-08-20 15:44] LABS: BASOPHILS % (AUTO) 0.4 % (0-1); EOSINOPHILS % (AUTO) 0.2 % (0-6); HEMATOCRIT 32.3 % (42.0-52.0); HEMOGLOBIN 10.9 g/dl (14.0-17.9); LYMPHOCYTES # (AUTO) 0.5 X10'3 (1.1-4.8); LYMPHOCYTES % (AUTO) 4.7 % (21-51); MEAN CORPUSCULAR HEMOGLOBIN 28.5 PG (27.0-31.0); MEAN CORPUSCULAR HGB CONC 33.7 g/dL (33.0-36.5); MEAN CORPUSCULAR VOLUME 84.4 FL (78-98); MEAN PLATELET VOLUME 6.8 FL (7.4-10.4); MONOCYTES # (AUTO) 0.4 X10'3 (0-0.9); MONOCYTES % (AUTO) 3.3 % (2-12); NEUTROPHILS # (AUTO) 10.3 X10'3 (1.8-7.7); NEUTROPHILS % (AUTO) 91.4 % (42-75); PLATELET COUNT 429 X10'3 (140-440); RED BLOOD COUNT 3.83 X10'6 (4.70-6.10); RED CELL DISTRIBUTION WIDTH 13.5 % (11.5-14.5); WHITE BLOOD COUNT 11.2 X10'3 (4.5-11.0)
[2024-08-20 15:50] LABS: ALBUMIN,BODY FLUID 2.2 G/DL; BF BILI 6.1 MG/DL
[2024-08-20 16:09] LABS: ALBUMIN 2.6 G/DL (3.4-5.0); ANION GAP 10 (8-16); BLOOD UREA NITROGEN 13 MG/DL (7-18); BUN/CREATININE RATIO 12.5 (10.0-20.0); CALCIUM 8.3 MG/DL (8.5-10.1); CHLORIDE 105 MMOL/L (99-107); CREATININE 1.04 MG/DL (0.60-1.10); GLUCOSE 132 MG/DL (70-104); POTASSIUM 4.4 MMOL/L (3.5-5.1); SODIUM 141 MMOL/L (135-145); TOTAL CARBON DIOXIDE 25.8 MMOL/L (24-32); eCRCL 61 ML/MIN; eGFR 70 ML/MIN
[2024-08-20 16:49] LABS: TOTAL PROTEIN,BODY FLUID 4.6 G/DL
[2024-08-20] MEDS: ceFAZolin/D5W- 1GM premix 50 ML IV SCH (17:14)
[2024-08-20] MEDS: HYDROcodone/acetaminophen 10/325mg tab PO PRN (17:24)
--- NOTE | 2024-08-20 17:49 | OPERATIVE REPORT ---
Operative Report Providers to CC ~ Date of Procedure: Aug 20, 2024 Pre-Operative Diagnosis: CARDIAC TAMPONADE, Acute Pericarditis; Pericardial Effusion Post-Operative Diagnosis SAME as PRE-Op Procedure Performed Subxyphoid Pericardial Window Sternal Block with 0.255 Marcaine Intra Operative MUNIR Surgeon: Vahe Kimball MD Cardiovascular & Thoracic Band Saw Filer NCIOLE Hernandez Anesthesiologist: Josue Santamaria Type of Anesthesia: General Findings: Large Amount of hemorrhagic and Loculated Pericardial Fluid which came out under pressure; A total of 800 cc was drained out. The pericardial Surface and the epicardial surface of the heart were inflamed and thickened with evidence of an acute inflammatory process. The loculations were broken with blunt dissection; The drainage was conformed on on MUNIR with significant improvement of the cardiac function and blood pressure after fluid drainage. The patient emerged from the anesthesia without any dificulty and was extubated and transferred to the Recovery Rom and later on to the ICU.He tolerated it very well. Complications None Prosthetics\Implants used: None Estimated Blood Loss: 50cc Specimen Removed: Pericardial Fluid Pericardial Tissue Description of Procedure: After clinical evaluation and after the patient was medically optimized and after the fact that his percutaneous Pericardiocenthesis was unsuccessful due to multiple loculations he was found to be a candiodate for open drainage via a Subxyphoid Pericardial Window. He was take to the OR#4 and given the induction of the anesthesia without any complications. an arterial line and a MUNIR probe were inserted by the Cardiac Anesthesiologist, he was then prep and draped in the usual fashion. A time out was called and the patient procedure and laterality as well as perioperative medications were confirmed all the members of the team agreed. He was then approached via a sub-xyphoid Incision and the retro sternal space was entered after opening the linea Alba. The pre peritoneal fat was dissected and the pericardial insertion on the Diaphragm was identified. A silk stitch was applied to the pericardial sac for traction and a pericardial window was created by excising a circumference segment of the anterior pericardium evacuating over 800 mL of non clotting hemorrhagic fluid.The loculattions were taken down with blunt disection and the entire pericardial space was drained and this was confirmed with MUNIR after that the pericardial space was lavage with antibiotinc irrigation and the space was drained with three mediastinal Drains which were connected to a pleurovac and placed on suction. The wound was then closed in layers with #1 Vicryl ;2-0 Vicryl and 4-0 Monocryl He then energed from the anesthesia without any difficulty and transferred to Recovery room in stable condition. He tolerated it very well. Counts repoted as correct: Yes X-Ray findings: No Foreign body Visit Coding Cardiology Date of Service: Aug 20, 2024 Billing Provider: VAHE KIMBALL MD Cardiology Evaluation and Sofiya: [id number] HOSP CARE(High, PROCEDURE ONLY VAHE KIMBALL MD Aug 20, 2024 17:49
--- NOTE | 2024-08-20 17:56 | CARDIOLOGY REPORT ---
APPROVED REPORT EXAM: Limited 2D Echocardiogram. 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 Ciaran MD ; Centesis performed by Elida Rothman MD. Previous echo 08/18/24 [facility] 60-65% EF ; large pericardial effusion with signs of tamponade LEFT VENTRICLE LV appears normal in size with mild concentric hypertrophy. Overall systolic function appears normal. LVEF is 60%. PERICARDIUM Large circumferential pericardial effusion with RA collapse. Pericardiocentesis was performed with 15 0-200 cc of bloody fluid removed. Unable to successfully drain all of the fluid, effusion likely locu lated. Other Information Study Quality: Adequate Conclusion LV appears normal in size with mild concentric hypertrophy. Overall systolic function appears normal. LVEF is 60%. Large circumferential pericardial effusion with RA collapse. Pericardiocentesis was performed with 15 0-200 cc of bloody fluid removed. Unable to successfully drain all of the fluid, effusion likely locu lated.
--- NOTE | 2024-08-20 18:24 | RADIOLOGY REPORT ---
EXAM: DI CHEST,SINGLE VIEW TECHNIQUE: Single frontal chest radiograph CLINICAL HISTORY: Post op Pericardial Window COMPARISON: DI CHEST,SINGLE VIEW on DOS: 08/19/24, DI CHEST,SINGLE VIEW on DOS: 08/18/24, DI CHEST,SINGLE VIEW on DOS: 08/11/24 Findings/Impression: Frontal chest radiograph demonstrates no acute osseous or superficial soft tissue abnormalities. The trachea is midline. Borderline cardiomegaly with mild pneumopericardium, consistent with history of recent cardiac surgery. No pneumothorax, pleural effusions, or consolidations.
--- NOTE | 2024-08-20 18:45 | CARDIOLOGY REPORT ---
APPROVED REPORT EXAM: Limited intraoperative transesophageal echocardiogram. Patient Location: OR RM 4 Blood Pressure: 188/96 mmHg Heart Rate: 118 bpm Indications PERICARDIAL EFFUSION PERICARDIAL WINDOW MUNIR Probe Passed By Kimi Santamaria MD HERBARIUM CURATOR: Yadira Wagoner MD / Surgeon: Myles Kimball MD Previous ECHO: 08/19/24, [facility], SS, EF: 60; Large pericardial effusion with 50 to 200 cc bloody fluid extracted LEFT VENTRICLE Normal LV size and function with mild concentric hypertrophy. LVEF is 55-60%. RIGHT VENTRICLE The right ventricle apears normal size with adequate function. ATRIA Left atrium appears mildly dilated. AORTIC VALVE The aortic valve appears normal in structure without stenosis. AV not fully evaluated due to focused exam. MITRAL VALVE The mitral valve appears normal in structure without stenosis. MV not fully evaluated due to focused exam. TRICUSPID VALVE The tricuspid valve appears normal in structure. PERICARDIUM Mild to moderate circumferential pericardial effusion present. Best seen from gastric view. No curren t signs of hemodynamic compromise noted. Pericardial window performed with approximately 800 cc of bl oody gelatanouss fluid extracted. Trivial amount of fluid remains in pericardial space. Drainage tube left in place. CONCLUSION Normal LV size and function with mild concentric hypertrophy. LVEF is 55-60%. The right ventricle ape ars normal size with adequate function. Left atrium appears mildly dilated. The aortic valve appears normal in structure without stenosis. AV not fully evaluated due to focused exam. The mitral valve ap pears normal in structure without stenosis. MV not fully evaluated due to focused exam. The tricuspid valve appears normal in structure. Mild to moderate circumferential pericardial effusion present. Be st seen from gastric view. No current signs of hemodynamic compromise noted. Pericardial window perfo rmed with approximately 800 cc of bloody gelatanous fluid extracted. Trivial amount of fluid remains in pericardial space. Drainage tube left in place. Conclusion Normal LV size and function with mild concentric hypertrophy. LVEF is 55-60%. The right ventricle apears normal size with adequate function. Left atrium appears mildly dilated. The aortic valve appears normal in structure without stenosis. AV not fully evaluated due to focused exam. The mitral valve appears normal in structure without stenosis. MV not fully evaluated due to focused exam. The tricuspid valve appears normal in structure. Mild to moderate circumferential pericardial effusion present. Best seen from gastric view. No cur rent signs of hemodynamic compromise noted. Pericardial window performed with approximately 800 cc o f bloody gelatanous fluid extracted. Trivial amount of fluid remains in pericardial space. Drainage tube left in place.
[2024-08-20] MEDS: gabapentin 300mg capsule PO SCH (19:44)
[2024-08-20] MEDS: docusate sod 100mg capsule PO SCH (19:45)
--- NOTE | 2024-08-20 20:35 | PROGRESS NOTE ---
Daily Progress Note Providers to CC ~ Antibiotic Timeout Antibiotic Ordered?: No Subjective No new complaints, patient is resting comfortably, has a pericardial drain Objective Vital Signs Date Time Temp Pulse Resp B/P (MAP) Pulse Ox O2 Delivery O2 Flow Rate FiO2 08/20/24 18:24 17 08/20/24 18:00 94 155/72 (99) 96 Nasal Cannula 3.0 129/79 (96) 08/20/24 16:00 99.1 Result Diagram: 08/20/24 1525 08/20/24 1525 Awake cooperative in no acute distress HEENT normocephalic atraumatic extraocular movements are intact Neck supple, no JVD Chest: Decreased breath sounds, no wheezes crackles rhonchi Heart: Regular rate rhythm, distant heart sounds almost absent during inspiration Abdomen: Soft, nontender, no organomegaly Extremities no cyanosis clubbing or edema Neuro exam is nonfocal. Coagulation Studies Laboratory Tests Test 08/18/24 16:44 Prothrombin Time 10.7 SECONDS (9.0-12.0) INR International Normalized Ratio 1.0 INR Activated Partial Thromboplast Time 28 SECONDS (22-32) Coagulation Comments Other Results Medications reviewed Problem\Assessment\Plan 73 year-old male with past medical history of CAD status post stent placement, HTN, HLD presented to the ED after referral from Dr. Wagoner's clinic. Reportedly, on 08/11/24 patient presented to the ER with chest pain, pressure- like in character with a severity of 9/10 that radiated to the back and left shoulder, increased with deep inspiration and decreased on bending forward. During further investigations while in the ED pulmonary embolism and aortic aneurysm were ruled out, patient was found to have pericarditis. Patient was discharged with NSAIDs and colchicine. Patient was seen in the office of Dr. Wagoner where and echo was done and it showed a pericardial temponade and patient sent over to the ER. 1. Pericardial effusion with tamponade: Cardiology has been consulted.Patient underwent pericardial l window and mediastinal drains to PleuraVac 2.HTN: Continue lisinopril 3. Hyperlipidemia: Continue atorvastatin 4. Code status: Full code 5. DVT prophylaxis: SCDs and early ambulation Sepsis Screening Reassessment Time: 18:35 Skin Color: Pale Date of Service: Aug 20, 2024 Billing Provider: YESI STONER MD Common Visit Codes: [id number] INP/OBS CARE(HIGH) YESI STONER MD Aug 20, 2024 20:35
[2024-08-21] VITALS (19 sets, daily range): BP systolic 97–165; BP diastolic 50–76; PULSE 74–103; RESP 12–20; TEMP 97.6–97.8; O2SAT 93–98
[2024-08-21 05:03] LABS: BASOPHILS % (AUTO) 0.2 % (0-1); EOSINOPHILS % (AUTO) 0 % (0-6); HEMATOCRIT 33.1 % (42.0-52.0); HEMOGLOBIN 11.1 g/dl (14.0-17.9); LYMPHOCYTES # (AUTO) 0.9 X10'3 (1.1-4.8); LYMPHOCYTES % (AUTO) 9.3 % (21-51); MEAN CORPUSCULAR HEMOGLOBIN 28.4 PG (27.0-31.0); MEAN CORPUSCULAR HGB CONC 33.5 g/dL (33.0-36.5); MEAN CORPUSCULAR VOLUME 84.6 FL (78-98); MEAN PLATELET VOLUME 6.7 FL (7.4-10.4); MONOCYTES # (AUTO) 1.1 X10'3 (0-0.9); MONOCYTES % (AUTO) 10.9 % (2-12); NEUTROPHILS # (AUTO) 7.9 X10'3 (1.8-7.7); NEUTROPHILS % (AUTO) 79.6 % (42-75); PLATELET COUNT 455 X10'3 (140-440); RED BLOOD COUNT 3.92 X10'6 (4.70-6.10); RED CELL DISTRIBUTION WIDTH 13.9 % (11.5-14.5)
[2024-08-21 05:18] LABS: ALANINE AMINOTRANSFERASE 20 U/L (12-78); ALBUMIN 2.3 G/DL (3.4-5.0); ALBUMIN/GLOBULIN RATIO 0.6 (1.1-1.5); ALKALINE PHOSPHATASE 52 IU/L (46-116); ANION GAP 9 (8-16); ASPARTATE AMINO TRANSFERASE 17 U/L (10-37); BILIRUBIN,TOTAL 0.3 MG/DL (0.1-1.0); BLOOD UREA NITROGEN 15 MG/DL (7-18); BUN/CREATININE RATIO 13.8 (10.0-20.0); CALCIUM 8.1 MG/DL (8.5-10.1); CHLORIDE 105 MMOL/L (99-107); CREATININE 1.09 MG/DL (0.60-1.10); GLUCOSE 131 MG/DL (70-104); MAGNESIUM 2.3 MG/DL (1.5-2.4); POTASSIUM 4.5 MMOL/L (3.5-5.1); SODIUM 139 MMOL/L (135-145); TOTAL CARBON DIOXIDE 25.4 MMOL/L (24-32); TOTAL PROTEIN 6.1 G/DL (6.4-8.2); eCRCL 58 ML/MIN; eGFR 67 ML/MIN
--- NOTE | 2024-08-21 06:07 | RADIOLOGY REPORT ---
CHEST RADIOGRAPH Indication: S/P PERICARDIAL WINDOW Technique: Single frontal view of the chest was obtained COMPARISON: DI CHEST,SINGLE VIEW on DOS: 08/20/24, DI CHEST,SINGLE VIEW on DOS: 08/19/24, DI CHEST,SINGLE VIEW on DOS: 08/18/24, DI CHEST,SINGLE VIEW on DOS: 08/11/24 FINDINGS: Lines and Tubes: None Lungs: Mild pulmonary vascular congestion. Pleura: No effusion. No pneumothorax. Cardiomediastinal contours: Drainage catheter overlies the left heart border. Bones: Unremarkable IMPRESSION: Mild pulmonary vascular congestion
[2024-08-21] MEDS: methylPREDNISolone sod succ 125mg/2ml vial IV SCH (07:40)
[2024-08-21] MEDS ORDERED: potassium Cl 40MEQ/1/2NS 520ml 520 ML IV PRN (07:50)
[2024-08-21] MEDS ORDERED: potassium Cl 40MEQ/270ML bag 250 ML IV PRN (07:50)
[2024-08-21] MEDS ORDERED: magnesium sulf-water 4G/100mL 100 ML IV PRN (07:50)
[2024-08-21] MEDS ORDERED: magnesium sulf-water 2g/50mL 50 ML IV PRN (07:50)
--- NOTE | 2024-08-21 07:58 | PROGRESS NOTE ---
Progress Note CV Providers to CC ~ Progress Note: PO Day #1 S/P Pericardial Window Central Line/PICC still needed: N\A Lee Indications Met/Not Met: F/C Indications Not Met Antibiotics Ordered?: Yes MRSA Education MRSA Education Provided: Yes Subjective Subjective With mild Discomfort at Chest Tubers site and Surgical Site Objective Vitals Vital Signs Date Time Temp Pulse Resp B/P (MAP) Pulse Ox O2 Delivery O2 Flow Rate FiO2 08/21/24 07:04 76 16 119/66 (83) 96 Nasal Cannula 3.0 122/60 (80) 08/21/24 06:00 97.2 Lab Results: 08/21/24 0400 08/21/24 0400 Objective Chest [address] in Place with Serous Sanguineous Drainage. He is alert and Responsive asking for breakfast this morning. Chest: Bilateral Expansion no acute distress. Surgical site intact no hematomas no bleeding. Heart: S1 S2 with mild friction Rub Lujngs: Bilateral Air entry with some Rhonchi. Abdomen: Soft non Tender, BS+ Extremities: Well Perfused Pulses Palpable in all four extremities. Neuro; Intact. Coagulation Studies Laboratory Tests Test 08/18/24 16:44 Prothrombin Time 10.7 SECONDS (9.0-12.0) INR International Normalized Ratio 1.0 INR Activated Partial Thromboplast Time 28 SECONDS (22-32) Coagulation Comments Cardiac Rhythm: Sinus Rhythm Problem\Assessment\Plan Problems/Diagnosis: (1) Status post pericardiocentesis Status: Acute Permanent Comment: with thick pericardial fluid and fibrin strands not able to drain properlly. Last Edited By: Vahe Kimball on Aug 19, 2024 18:31 (2) Hepatitis C Status: Chronic (3) Pericarditis Status: Acute Assessment & Plan: Awating final bacteriology and lab reports Permanent Comment: Will add IV Solumedrol and Continue Colchicine PO; Will transfer top tele today and continue Chest Tube Drainage for now. Advance Diet as tolerated. Last Edited By: Vahe Kimball on Aug 21, 2024 07:58 (4) Pericardial effusion Status: Acute Assessment & Plan: Will need a formal Subxyphoid Pericardial Window. Will schedule for 11 am tomorrow. NPO After midnight. I have discussed with the patient and his the risks and benefits of surgical intervention they understand and have agreed with the surgical plan. All their questions were answered to their satisfaction. (5) CAD (coronary artery disease) Status: Chronic (6) Hyperlipidemia Status: Chronic Sepsis Screening Reassessment Time: 18:35 Skin Color: Pale Visit Coding Cardiology Date of Service: Aug 21, 2024 Billing Provider: VAHE KIMBALL MD Cardiology Evaluation and Sofiya: [id number] INP/OBS CARE(Mod) Problem Qualifiers (1) Hepatitis C: Qualified Codes: B19.20 - Unspecified viral hepatitis C without hepatic coma (2) Pericarditis: (3) Hyperlipidemia: Qualified Codes: E78.2 - Mixed hyperlipidemia VAHE KIMBALL MD Aug 21, 2024 07:58
[2024-08-21] MEDS: potassium Cl 20 mEq SR tablet PO SCH (08:30)
[2024-08-21] MEDS: JUVEN Smoothie Arginine/Glut./Ca2+Bmb (Juven 19.3pkt) 240ml cup PO SCH (17:31)
[2024-08-22] VITALS (8 sets, daily range): BP systolic 110–124; BP diastolic 57–69; PULSE 74–99; RESP 14–18; TEMP 97.2–98.4; O2SAT 92–98
--- NOTE | 2024-08-22 06:06 | RADIOLOGY REPORT ---
CHEST RADIOGRAPH Indication: S/P PERICARDIAL WINDOW Technique: Single frontal view of the chest was obtained COMPARISON: DI CHEST,SINGLE VIEW on DOS: 08/21/24, DI CHEST,SINGLE VIEW on DOS: 08/20/24, DI CHEST,SINGLE VIEW on DOS: 08/19/24, DI CHEST,SINGLE VIEW on DOS: 08/18/24, DI CHEST,SINGLE VIEW on DOS: 08/11/24 FINDINGS: Lines and Tubes: Unchanged. Lungs: Clear. Mild bilateral lower lung zone atelectasis. Pleura: No effusion. No pneumothorax. Cardiomediastinal contours: Unremarkable Bones: Unremarkable IMPRESSION: 1. No acute disease. 2. Lines and tubes unchanged.
[2024-08-22 06:35] LABS: BASOPHILS % (AUTO) 0.1 % (0-1); EOSINOPHILS % (AUTO) 0 % (0-6); MONOCYTES # (AUTO) 0.4 X10'3 (0-0.9); MONOCYTES % (AUTO) 2.1 % (2-12)
[2024-08-22 06:36] LABS: HEMATOCRIT 36.5 % (42.0-52.0); HEMOGLOBIN 11.8 g/dl (14.0-17.9); LYMPHOCYTES % (AUTO) 5.5 % (21-51); MEAN CORPUSCULAR HEMOGLOBIN 27.6 PG (27.0-31.0); MEAN CORPUSCULAR HGB CONC 32.4 g/dL (33.0-36.5); MEAN CORPUSCULAR VOLUME 85.1 FL (78-98); MEAN PLATELET VOLUME 6.8 FL (7.4-10.4); NEUTROPHILS # (AUTO) 16.4 X10'3 (1.8-7.7); NEUTROPHILS % (AUTO) 92.3 % (42-75); PLATELET COUNT 611 X10'3 (140-440); RED BLOOD COUNT 4.29 X10'6 (4.70-6.10); RED CELL DISTRIBUTION WIDTH 14.1 % (11.5-14.5); WHITE BLOOD COUNT 17.8 X10'3 (4.5-11.0)
[2024-08-22 06:46] LABS: ALBUMIN 2.6 G/DL (3.4-5.0); ANION GAP 8 (8-16); BLOOD UREA NITROGEN 27 MG/DL (7-18); BUN/CREATININE RATIO 19.1 (10.0-20.0); CALCIUM 8.8 MG/DL (8.5-10.1); CHLORIDE 108 MMOL/L (99-107); CREATININE 1.41 MG/DL (0.60-1.10); GLUCOSE 166 MG/DL (70-104); MAGNESIUM 2.4 MG/DL (1.5-2.4); POTASSIUM 4.6 MMOL/L (3.5-5.1); SODIUM 143 MMOL/L (135-145); eCRCL 45 ML/MIN; eGFR 50 ML/MIN
[2024-08-22 14:24] LABS: ALBUMIN 2.5 G/DL (3.4-5.0); ANION GAP 6 (8-16); BLOOD UREA NITROGEN 30 MG/DL (7-18); BUN/CREATININE RATIO 22.2 (10.0-20.0); CALCIUM 8.8 MG/DL (8.5-10.1); CHLORIDE 107 MMOL/L (99-107); CREATININE 1.35 MG/DL (0.60-1.10); GLUCOSE 151 MG/DL (70-104); POTASSIUM 5.1 MMOL/L (3.5-5.1); SODIUM 141 MMOL/L (135-145); TOTAL CARBON DIOXIDE 27.8 MMOL/L (24-32); eCRCL 47 ML/MIN; eGFR 52 ML/MIN
--- NOTE | 2024-08-22 15:15 | PROGRESS NOTE ---
Progress Note CV Providers to CC ~ Progress Note: POD #2 PERICARDIAL WINDOW Antibiotics Ordered?: No Subjective Subjective subjectively dyspneic Objective Vitals Vital Signs Date Time Temp Pulse Resp B/P (MAP) Pulse Ox O2 Delivery O2 Flow Rate FiO2 08/22/24 11:00 97.9 84 18 110/65 (80) 96 Room Air 08/22/24 09:01 0 21 Lab Results: 08/22/24 0558 08/22/24 1405 Objective awake and alert non-labored respirations on RA tubes removed earlier by me incision looks good ambulatory Coagulation Studies Laboratory Tests Test 08/18/24 16:44 Prothrombin Time 10.7 SECONDS (9.0-12.0) INR International Normalized Ratio 1.0 INR Activated Partial Thromboplast Time 28 SECONDS (22-32) Coagulation Comments Cardiac Rhythm: Sinus Rhythm Problem\Assessment\Plan Problems/Diagnosis: (1) S/P pericardial window creation Assessment & Plan: drainage tubes removed this morning slight bump in WBC noted -probably due to steroids slight bump in creatinine - will monitor home likely tomorrow withtaper steroids fluid studies still pending Sepsis Screening Reassessment Time: 18:35 Skin Color: Pale KAYLA CHANDLER Aug 22, 2024 15:15
--- NOTE | 2024-08-22 17:49 | PROGRESS NOTE ---
Daily Progress Note Providers to CC ~ Antibiotic Timeout Antibiotic Ordered?: No Subjective No new complaints, patient is seen resting comfortably. Objective Vital Signs Date Time Temp Pulse Resp B/P (MAP) Pulse Ox O2 Delivery O2 Flow Rate FiO2 08/22/24 11:00 97.9 84 18 110/65 (80) 96 Room Air 08/22/24 09:01 0 21 Result Diagram: 08/22/24 0558 08/22/24 1405 Awake cooperative in no acute distress HEENT normocephalic atraumatic extraocular movements are intact Neck supple, no JVD Chest: Decreased breath sounds, no wheezes crackles rhonchi Heart: Regular rate rhythm, distant heart sounds almost absent during inspiration Abdomen: Soft, nontender, no organomegaly Extremities no cyanosis clubbing or edema Neuro exam is nonfocal. Coagulation Studies Laboratory Tests Test 08/18/24 16:44 Prothrombin Time 10.7 SECONDS (9.0-12.0) INR International Normalized Ratio 1.0 INR Activated Partial Thromboplast Time 28 SECONDS (22-32) Coagulation Comments Other Results Medications reviewed Problem\Assessment\Plan 73 year-old male with past medical history of CAD status post stent placement, HTN, HLD presented to the ED after referral from Dr. Wagoner's clinic. Reportedly, on 08/11/24 patient presented to the ER with chest pain, pressure- like in character with a severity of 9/10 that radiated to the back and left shoulder, increased with deep inspiration and decreased on bending forward. During further investigations while in the ED pulmonary embolism and aortic aneurysm were ruled out, patient was found to have pericarditis. Patient was discharged with NSAIDs and colchicine. Patient was seen in the office of Dr. Wagoner where and echo was done and it showed a pericardial temponade and patient sent over to the ER. 1. Pericardial effusion with tamponade: Cardiology has been consulted.Patient underwent pericardial .Mediastinal drains to PleuraVac previously noted have been removed, continue colchicine and methylprednisone. 2.HTN: Continue lisinopril 3. Hyperlipidemia: Continue atorvastatin 4. Code status: Full code 5. DVT prophylaxis: SCDs and early ambulation Sepsis Screening Reassessment Time: 18:35 Skin Color: Pale Date of Service: Aug 22, 2024 Billing Provider: YESI STONER MD Common Visit Codes: [id number] INP/OBS CARE(HIGH) YESI STONER MD Aug 22, 2024 17:49
[2024-08-22] MEDS: colchicine 0.6mg tablet PO SCH (21:05)
[2024-08-22] MEDS: mag hydrox/Alum hydrox/simeth 30ml oral suspension PO PRN (21:08)
[2024-08-22] MEDS ORDERED: morphine 4 MG/ML inj SYRINge IV PRN (21:16)
[2024-08-23 02:00] VITALS: BP 123/69; PULSE 88; RESP 16; TEMP 97.8; O2SAT 81
[2024-08-23 06:00] VITALS: BP 117/66; PULSE 77; RESP 18; TEMP 97.6; O2SAT 96
[2024-08-23 06:10] LABS: BASOPHILS % (AUTO) 0 % (0-1); EOSINOPHILS % (AUTO) 0 % (0-6); HEMOGLOBIN 11.3 g/dl (14.0-17.9); LYMPHOCYTES # (AUTO) 0.8 X10'3 (1.1-4.8); LYMPHOCYTES % (AUTO) 3.9 % (21-51); MEAN CORPUSCULAR HEMOGLOBIN 28.2 PG (27.0-31.0); MEAN CORPUSCULAR HGB CONC 33.3 g/dL (33.0-36.5); MEAN CORPUSCULAR VOLUME 84.7 FL (78-98); MEAN PLATELET VOLUME 6.7 FL (7.4-10.4); MONOCYTES # (AUTO) 0.5 X10'3 (0-0.9); MONOCYTES % (AUTO) 2.3 % (2-12); NEUTROPHILS # (AUTO) 19.3 X10'3 (1.8-7.7); NEUTROPHILS % (AUTO) 93.8 % (42-75); PLATELET COUNT 577 X10'3 (140-440); RED BLOOD COUNT 4.01 X10'6 (4.70-6.10); WHITE BLOOD COUNT 20.6 X10'3 (4.5-11.0)
[2024-08-23 06:16] LABS: ALBUMIN 2.4 G/DL (3.4-5.0); ANION GAP 9 (8-16); BLOOD UREA NITROGEN 30 MG/DL (7-18); BUN/CREATININE RATIO 25.9 (10.0-20.0); CALCIUM 8.6 MG/DL (8.5-10.1); CHLORIDE 107 MMOL/L (99-107); CREATININE 1.16 MG/DL (0.60-1.10); GLUCOSE 156 MG/DL (70-104); MAGNESIUM 2.4 MG/DL (1.5-2.4); POTASSIUM 4.6 MMOL/L (3.5-5.1); SODIUM 143 MMOL/L (135-145); TOTAL CARBON DIOXIDE 27.4 MMOL/L (24-32); eCRCL 55 ML/MIN; eGFR 62 ML/MIN
--- NOTE | 2024-08-23 06:27 | RADIOLOGY REPORT ---
CHEST RADIOGRAPH Indication: S/P PERICARDIAL WINDOW Technique: Single frontal view of the chest was obtained COMPARISON: DI CHEST,SINGLE VIEW on DOS: 08/22/24, DI CHEST,SINGLE VIEW on DOS: 08/21/24, DI CHEST,SINGLE VIEW on DOS: 08/20/24, DI CHEST,SINGLE VIEW on DOS: 08/19/24, DI CHEST,SINGLE VIEW on DOS: 08/18/24 FINDINGS: Lines and Tubes: Interval removal of mediastinal drainage catheters. Lungs: Clear Pleura: No effusion. No pneumothorax. Cardiomediastinal contours: Unremarkable Bones: Unremarkable IMPRESSION: 1. No acute disease. 2. Interval removal of mediastinal drainage catheters.
[2024-08-23 10:00] VITALS: BP 113/60; PULSE 78; RESP 17; TEMP 98.4; O2SAT 94
[2024-08-23] MEDS ORDERED: HYDR-3965 PO (10:34)
[2024-08-23] MEDS ORDERED: COL0.6T PO (10:34)
[2024-08-23] MEDS ORDERED: METH4TAB81 PO (10:34)
--- NOTE | 2024-08-23 10:44 | DISCHARGE SUMMARY ---
Discharge Summary Providers to CC ~ Discharge Summary Admission Diagnosis: CARDIAC TAMPONADE, Acute Pericarditis; Pericardial Effusion Hospital Course DATE OF ADMISSION: 08/19/2024 DATE OF DISCHARGE: 08/23/2024 Discharge Diagnosis\Comment: s/p subxyphoid pericardial window Operations\Procedures: 08/20/2024 Subxyphoid Pericardial Window Sternal Block with 0.255 Marcaine Intra Operative MUNIR Consultants: none Complications: none Condition on DC: Stable New Medications: Hydrocodone Bit/Acetaminophen 5/325 MG ([place] 5/325 MG) 5 Mg/325 Mg Tablet 1 TAB PO Q6H PRN for pain, #20 TAB Methylprednisolone (Medrol Dosepak) 4 Mg Tab.ds.pk 0 PO UD, #21 TAB 0 Refills take 6 Pills Day 1, 5 Pills Day 2, 4 Pills Day 3, 3 Pills Day 4, 2 Pills Day 5 and 1 pill Day 6 Colchicine (Colcrys) 0.6 Mg Tablet 0.6 MG PO BID for 14 Days, #28 TAB Continued Medications: Aspirin (Aspirin) 81 Mg Tab.chew 1 TAB PO DAILY, TAB Atorvastatin Calcium (Atorvastatin Calcium) 40 Mg Tablet 1 TAB PO DAILY Baclofen (Baclofen) 10 Mg Tablet 1 TAB PO DAILY PRN for muscle spasm Lisinopril (Lisinopril) 5 Mg Tablet 1 TAB PO DAILY [place]-3 Fatty Acids/Fish Oil (Fish Oil 1,000 mg Softgel) 1 Each Capsule 1 CAP PO DAILY Discontinued Medications: Hydrocodone Bit/Acetaminophen ([place] 10-325 Tablet) 1 Each Tablet 1 TAB PO Q6H PRN for pain, TAB 0 Refills Discharge Summary: 73 yrs old male with a history of precordial and anterior pleuritic like chest pain associated to fever , cough and malaise. Per his he started having flu ;like symptoms about a week prior to his symptoms; He was seen in the Er over the weekend and discharge on Colchicine and Aspirin. He was readmitted because of worsening symptoms including chills, mild Hypotension was admitted for further work up. A 2-D ECHO showed a Large pericardial effusion with impending Tamponade; He was seen by cardiology and had an attempted pericardiocenthesis but not able to drain much due to the fact that the fluid was thick and loculated. He had a total of 300cc drained out in lab asst but after several attempts it was abandoned and a CVTS Consult requested for a formal pericardial window and drainage during this admission. He was taken to to the OR on 08/20/2024 where the above listed operation was performed. His postoperative course was uncomplicated. Pericarditis was treated with IV steroids and colchicine. Pericardial drains were removed on postoperative day 2. We did notice slight bump in his creatinine up to 1.41 on postop day 2. This did returned towards baseline prior to discharge. Postoperative day 3. He was ready for discharge. At that time he is afebrile stable vital signs. Good pain control. Cardiopulmonary status was stable on room air. Normal sinus rhythm on the monitor. Ambulating well. Incisions are clean and dry showing no sign of infection. He was doing well seems satisfactory for discharge to home. fluid cytology results pending, serology suggests viral etiology of pericarditis. bacterial cultures negative discharged with medrol dose pack and colchicine for 2 weeks Will follow up in our office in two weeks for wound check and stitch removal. *Problems/Diagnosis: (1) S/P pericardial window creation (2) Pericardial effusion Status: Acute (3) Pericarditis Status: Acute (4) Tamponade Status: Acute Total Time Spent on D/C: Up to 30 Minutes Counseling Services Smoking & Tobacco Cessation: N/A Problem Qualifiers (1) Pericarditis: KAYLA CHANDLER Aug 23, 2024 10:37
--- NOTE | 2024-08-23 12:15 | PROGRESS NOTE ---
Daily Progress Note Providers to CC ~ Antibiotic Timeout Antibiotic Ordered?: No Subjective No new complaints. Patient states he is going home. Objective Vital Signs Date Time Temp Pulse Resp B/P (MAP) Pulse Ox O2 Delivery O2 Flow Rate FiO2 08/23/24 08:58 16 08/23/24 08:00 Room Air 08/23/24 08:00 77 08/23/24 06:00 97.6 117/66 (83) 96 08/22/24 20:00 0 21 Result Diagram: 08/23/24 0504 08/23/24 0504 Awake cooperative in no acute distress HEENT normocephalic atraumatic extraocular movements are intact Neck supple, no JVD Chest: Decreased breath sounds, no wheezes crackles rhonchi Heart: Regular rate rhythm, distant heart sounds almost absent during inspiration Abdomen: Soft, nontender, no organomegaly Extremities no cyanosis clubbing or edema Neuro exam is nonfocal. Coagulation Studies Laboratory Tests Test 08/18/24 16:44 Prothrombin Time 10.7 SECONDS (9.0-12.0) INR International Normalized Ratio 1.0 INR Activated Partial Thromboplast Time 28 SECONDS (22-32) Coagulation Comments Other Results Medications reviewed Problem\Assessment\Plan 73 year-old male with past medical history of CAD status post stent placement, HTN, HLD presented to the ED after referral from Dr. Wagoner's clinic. Reportedly, on 08/11/24 patient presented to the ER with chest pain, pressure- like in character with a severity of 9/10 that radiated to the back and left shoulder, increased with deep inspiration and decreased on bending forward. During further investigations while in the ED pulmonary embolism and aortic aneurysm were ruled out, patient was found to have pericarditis. Patient was discharged with NSAIDs and colchicine. Patient was seen in the office of Dr. Wagoner where and echo was done and it showed a pericardial temponade and patient sent over to the ER. 1. Pericardial effusion with tamponade: Cardiology consulted.Patient underwent pericardial .Mediastinal drains to PleuraVac previously noted have been removed, and patient is doing well postoperatively. continue colchicine and methylprednisone. 2.HTN: Continue lisinopril 3. Hyperlipidemia: Continue atorvastatin 4. Code status: Full code 5. DVT prophylaxis: SCDs and early ambulation 6.. Disposition home per Cardiology Sepsis Screening Reassessment Time: 18:35 Skin Color: Pale Date of Service: Aug 23, 2024 Billing Provider: YESI STONER MD Common Visit Codes: [id number] INP/OBS CARE(MOD) YESI STONER MD Aug 23, 2024 12:15
[2024-08-24 11:24] LABS: PARVOVIRUS B19, IGM 0.2 index (0.0-0.8)
== END 2024-08-23 12:15 | disposition home or self-care (01) | DRG 270 ==
LOC: ER 16:37 → ED HOLD 20:40 → PCU 3S 22:01 → CICU 2S 08-20 11:51 → PCU 3S 08-21 14:05
PROVIDERS: ADMIT Internal Medicine Pulmonary Disease; ATTEND Internal Medicine
PROC: B244ZZ4 Ultrasonography of Right Heart, Transesophageal (ICD-10-PCS; 2024-08-20)
PROC: 02JA3ZZ Inspection of Heart, Percutaneous Approach (ICD-10-PCS; 2024-08-20)
PROC: 0W9D0ZZ Drainage of Pericardial Cavity, Open Approach (ICD-10-PCS; principal; 2024-08-20 12:40)
DX: I30.1 Infective pericarditis (principal); N17.0 Acute kidney failure with tubular necrosis; I31.4 Cardiac tamponade; B19.20 Unspecified viral hepatitis C without hepatic coma; E78.5 Hyperlipidemia, unspecified; I10 Essential (primary) hypertension; I25.10 Atherosclerotic heart disease of native coronary artery without angina pectoris; Z95.5 Presence of coronary angioplasty implant and graft; Z88.8 Allergy status to other drugs, medicaments and biological substances; Z86.19 Personal history of other infectious and parasitic diseases; Z87.891 Personal history of nicotine dependence; B97.89 Other viral agents as the cause of diseases classified elsewhere
CPT/HCPCS: 33016; 36415; 71045; 80048; 80053; 81003; 82042; 82150; 82247; 82465; 82570; 82945; 82948; 83036; 83605; 83615; 83735; 83880; 84157; 84478; 84484; 84540; 85007; 85025; 85610; 85730; 86658; 86663; 86664; 86665; 86747; 86885; 86900; 86901; 86920; 87040; 87070; 87075; 87081; 87102; 93005; 93308; 93312; 94760; 97161; 97530; 99152; 99153; 99285; A4615; A4618; A6258; A6402; A6449; A7000; C1758; G0378; J0131; J0665; J0690; J1100; J2003; J2250; J2270; J2371; J2405; J2704; J2710; J2919; J3010; J3490; J7030; J7040; J7050; J7120